=== PATIENT | male | born 1960 | race Caucasian/White ===

== ENCOUNTER 2025-02-11 06:36 | Observation (INO) | payer BC, SELFPAY ==
[2025-02-11] VITALS (23 sets, daily range): BP systolic 111–163; BP diastolic 59–93; PULSE 69–91; RESP 16–20; TEMP 37–37.2; O2SAT 90–97; BMI 24.0
--- NOTE | 2025-02-11 07:14 | CT_ITS ---
FINAL REPORT TECHNIQUE: Thin section axial images are obtained through the abdomen and pelvis after intravenous contrast. Reconstruction images were obtained from the axial data. Exam was performed using dose reduction techniques. CLINICAL HISTORY: gen abd pain, difficulty having BM, fever/n/v FINDINGS: LUNG BASES: Lung bases are clear. Heart size is normal. LIVER: Diffuse fatty infiltration. No focal lesion. GALLBLADDER/BILIARY SYSTEM: Gallbladder is present. There is gallbladder wall thickening. There are likely gallstones. There is mild surrounding abnormal attenuation raising concern for acute cholecystitis. SPLEEN: Unremarkable. PANCREAS: Unremarkable. ADRENALS: Unremarkable. KIDNEYS/URETERS/BLADDER: No hydronephrosis, renal mass, or renal stone. Unremarkable urinary bladder. GI TRACT: No small bowel obstruction or dilatation. Normal appendix. There is mild wall thickening of the descending colon. Colitis is not excluded. PELVIC ORGANS: Unremarkable for age. LYMPH NODES/RETROPERITONEUM/MESENTERY: No lymphadenopathy. Abdominal aortic aneurysm measuring 44 mm. ABDOMINAL WALL: There is a right inguinal hernia containing fat and a loop of small bowel. FREE FLUID: No ascites. BONES: No acute osseous abnormality. IMPRESSION: Distended gallbladder with gallbladder wall thickening and inflammatory changes. Acute cholecystitis is not excluded. Possible descending colitis. Abdominal aortic aneurysm. Reviewed, Interpreted and Dictated by Heidy Modi MD Transcribed by Sujey Jacome Authenticated and [facility]
--- NOTE | 2025-02-11 07:20 | ED_ITS ---
Discharge Plan Disposition Patient Disposition: Admitted Condition: Good Clinical Impressions Clinical Impression: Cholecystitis, Colitis Discharge ED Provider: Anny Galindo General Adult HPI General Chief complaint: Nausea/Vomiting/Diarrhea Stated complaint: possible bowel obrustion, vomiting, bloating,fever Time Seen by Provider: 02/11/25 07:02 Mode of Arrival: Ambulatory Source of Information: Patient Description of Symptoms (Recalled from ER Triage Doc. by RN): PT HERE W/ C/O NV/CONSTIPATION. LAST NORMAL BM X1 WEEK. REPORTS ENEMA WITH MINIMAL RESULTS. VOMITTING STARTED AROUND 0300 THIS AM. PT CONCERNED FOR IMPACTION History of Present Illness HPI narrative: This patient is a 64-year-old male who denies significant past medical history or prior surgical abdominal history presenting to the emergency department for evaluation of concern for abdominal pain, nausea, vomiting, and concerns for fecal impaction. He notes he is not been able to have a bowel movement in a week. He states he tried multiple laxatives and enemas at home but has not had any improvement. Abdominal pain is generalized. Fevers are subjective and low- grade. No history of bowel obstructions or abdominal surgeries, he has a history of colonoscopy and he stated that he does not have any significant problems that he knows of. Related Data Home Medications ?Medication ?Instructions ?Recorded ?Confirmed No Known Home Medications 02/11/25 02/11/25 Allergies Allergy/AdvReac Type Severity Reaction Status Date / Time No Known Allergies Allergy Verified 02/11/25 06:55 [facility] Disclaimer: The information contained in this section may have been updated after the patient was seen, as this information can be updated by other users. Medical History No significant past medical history Surgical History No significant past surgical history Family History (Updated 02/11/25 @ 13:30 by Maryuri Vaca RN) Other No significant family history Social History (Updated 02/11/25 @ 13:30 by Maryuri Vaca, [place]) Smoking Status: Never smoker alcohol intake: never substance use type: denies use current occupational status: other Travel in the last 8 weeks: None Have you lived/traveled outside US in past 30 days?: No Contact w/someone who lives/traveled outside US past 30 days?: No Exposure to someone with infectious disease in past 14 days?: No Do you have a fever (greater than 100.4 F or 38 C)?: Yes Have you tested positive for COVID-19: No Exposed to someone with COVID-19 in past 14 days?: No Do you have a sore throat?: No Do you have a cough?: No Do you have any weakness?: No Are you experiencing any nausea/vomitting?: Yes Do you have any diarrhea?: No Are you experiencing any unusual bleeding?: No Do you have any muscle aches/pain?: No Do you have any abdominal pain?: No Are you experiencing loss of taste or smell?: No ROS Obtained: Yes All systems reviewed & no additional complaints except as documented Physical Exam General General appearance: alert and in no apparent distress Head Head exam: atraumatic and normocephalic Eye Eye exam: Present normal appearance, PERRL and EOMI ENT ENT exam: Present normal exam, normal oropharynx, mucous membranes moist and normal external ear exam Neck Neck exam: Present normal inspection, full ROM and trachea midline; Absent tenderness Chest Chest inspection: Present normal inspection and symmetric chest wall rise; Absent tenderness Respiratory Respiratory exam: Present normal lung sounds bilaterally; Absent respiratory distress, wheezes, stridor or accessory muscle use Cardiovascular Cardiovascular exam: Present regular rate and normal rhythm Abdominal Exam Abdominal exam: Present soft, distention (mild) and tenderness (generalized); Absent guarding, rebound or rigidity Extremities Exam Extremities exam: Present normal inspection, full ROM and normal capillary refill; Absent tenderness or edema Back Exam Back exam: Present normal inspection and full ROM; Absent tenderness Neurological Exam Neurological exam: Present alert, oriented X3, CN II-XII intact and normal gait; Absent motor sensory deficit Psychiatric Psychiatric exam: Present normal affect and normal mood Skin Skin exam: Present warm and dry Medical Decision Making Medical Records Medical records reviewed: Yes I reviewed the patient's medical records. Screening: Per USPSTF and CDC recommendations, given the prevalence of disease in our region, it is our hospital?s policy to screen for HIV and viral Hepatitis for all patients aged 18 and over and those with ongoing risk factors. Jaden Inquiry Pt receiving controlled substance: No Vital Signs: 02/11/25 06:51 02/11/25 07:00 02/11/25 07:30 Temperature 99.0 F Temperature Source Oral Pulse Rate 82 79 Pulse Rate [Apical] 91 H Respiratory Rate 20 Blood Pressure 148/89 H 138/87 Blood Pressure [Right Arm] 146/93 H Blood Pressure Mean Blood Pressure Mean [Right Arm] 110 02 Sat by Pulse Oximetry 96 96 97 Oxygen Delivery Method Room Air Room Air Room Air 02/11/25 08:00 02/11/25 09:12 02/11/25 09:30 Temperature Temperature Source Pulse Rate 75 72 71 Pulse Rate [Apical] Respiratory Rate Blood Pressure 155/85 H 143/90 H 160/88 H Blood Pressure [Right Arm] Blood Pressure Mean 99 112 Blood Pressure Mean [Right Arm] 02 Sat by Pulse Oximetry 97 95 93 L Oxygen Delivery Method Room Air 02/11/25 10:30 Temperature 98.6 F Temperature Source Oral Pulse Rate 72 Pulse Rate [Apical] Respiratory Rate 16 Blood Pressure 163/85 H Blood Pressure [Right Arm] Blood Pressure Mean Blood Pressure Mean [Right Arm] 02 Sat by Pulse Oximetry Oxygen Delivery Method Room Air Lab Data Lab results reviewed: Yes I reviewed the patient's lab results. Lab Results 02/11/25 07:29: WBC 11.1 H, RBC 4.84, Hgb 15.0, Hct 43.2, MCV 89.3, MCH 31.0, MCHC 34.7, RDW 13.7, Plt Count 292, MPV 9.7, Neut % (Auto) 78.5, Lymph % (Auto) 11.4, [place] % (Auto) 9.1, Eos % (Auto) 0.3, Baso % (Auto) 0.4, Neut # (Auto) 8.7 H, Lymph # (Auto) 1.3, [place] # (Auto) 1.0, Eos # (Auto) 0.0, Baso # (Auto) 0.0, Sodium 136, Potassium 3.8, Chloride 98, Carbon Dioxide 26, Anion Gap 15.8 H, BUN 9, Creatinine 0.70, Estimated Creat Clear 78, Estimated GFR 113, Est GFR ( Amer) 137, Glucose 117 H, Calcium 10.0, Magnesium 1.8, Total Bilirubin 0.8, AST 24, ALT 24, Alkaline Phosphatase 66, Total Protein 7.3, Albumin 4.6, Globulin 2.7, Albumin/Globulin Ratio 1.7, Lipase 57, HCV Ab BHAVANI w/Rflx PCR Qn Negative, HIV Ag/Ab Combo Qual Negative 02/11/25 08:19: Urine Color Yellow, Urine Appearance Clear, Urine pH 7.5, Ur Specific [place] 1.010, Urine Protein Negative, Urine Glucose (UA) Negative, Urine Ketones Negative, Urine Blood Negative, Urine Nitrate Negative, Urine Bilirubin Negative, Urine Urobilinogen 0.2, Ur Leukocyte Esterase Negative, Urine RBC None, Urine WBC None, Ur Squamous Epith Cells None, Urine Bacteria None 02/11/25 07:29 02/11/25 07:29 Orders (Tests/Meds): ED MEDICATIONS Generic Name Dose Route Start Last Admin Trade Name Freq PRN Reason Stop Dose Admin Acetaminophen 650 mg 02/11/25 12:45 Acetaminophen 325mg Tab PO 03/13/25 12:44 Q4HP PRN Fever or Mild Pain (1-3) Hydrocodone Bitart/Acetaminophen 1 tab 02/11/25 12:45 Hydrocodone/Apap 5/325 Mg Tablet PO 03/13/25 12:44 Q4HP PRN Mild to Moderate Pain (1-6) Hydrocodone Bitart/Acetaminophen 2 tab 02/11/25 12:45 Hydrocodone/Apap 5/325 Mg Tablet PO 03/13/25 12:44 Q4HP PRN Moderate to Severe Pain (4-10) Enoxaparin Sodium 40 mg 02/12/25 09:00 Enoxaparin 40mg/0.4ml Syringe SUBCUT 03/14/25 08:59 DAILY JAQUELINE Discontinued Medications Generic Name Dose Route Start Last Admin Trade Name Freq PRN Reason Stop Dose Admin Acetaminophen 1,000 mg 02/11/25 08:58 02/11/25 09:06 Acetaminophen 1,000mg/100ml Vial IV 02/11/25 08:59 1,000 mg ONCE ONE Administration Hydromorphone HCl 0.5 mg 02/11/25 12:40 Hydromorphone 2mg/Ml Syringe IV 02/11/25 14:40 Q5MINP PRN Severe Pain (7-10) Lactated Ringer's 1,000 mls @ 999 mls/hr 02/11/25 07:28 02/11/25 07:40 Lactated Ringer's 1000 Ml Bag IV 02/11/25 08:28 999 mls/hr .Q1H1M ONE Administration Piperacillin Sod/Tazobactam 50 mls @ 100 mls/hr 02/11/25 09:36 02/11/25 11:34 Sod 3.375 gm/ Sodium Chloride IV 02/11/25 10:05 100 mls/hr ONCE ONE Administration Iopamidol 75 ml 02/11/25 08:26 02/11/25 08:27 Iopamidol-370 (76%);100ml Bottle IV 02/11/25 08:27 75 ml ONCE ONE Administration Ketorolac Tromethamine 15 mg 02/11/25 08:58 02/11/25 09:06 Ketorolac 30mg/Ml Vial IV 02/11/25 08:59 15 mg ONCE ONE Administration Meperidine HCl 25 mg 02/11/25 12:40 Meperidine 25mg/Ml 1ml Syringe IV 02/11/25 14:40 Q5MINP PRN Shivering Morphine Sulfate 2 mg 02/11/25 12:40 Morphine 2mg/Ml Syringe IV 02/11/25 14:40 Q5MINP PRN Moderate Pain (4-6) Ondansetron HCl 4 mg 02/11/25 08:58 02/11/25 09:06 Ondansetron 4mg/2ml Vial IV 02/11/25 08:59 4 mg ONCE ONE Administration Ondansetron HCl 4 mg 02/11/25 12:40 Ondansetron 4mg/2ml Vial IV 02/11/25 14:40 Q6HP PRN Nausea Promethazine HCl 6.25 mg 02/11/25 12:40 Promethazine Hcl 25mg/Ml 1ml Vial IV 02/11/25 14:40 [id number] PRN Nausea And Vomiting Sodium Chloride 10 ml 02/11/25 08:26 02/11/25 08:26 Sodium Chloride 0.9% 10ml Syr (Rad Only) IV 02/11/25 08:27 10 ml ONCE ONE Administration Sodium Chloride 25 ml 02/11/25 12:40 Sodium Chloride 0.9% 25ml Bag IV 02/11/25 14:40 NEEDED PRN for Use with IV Promethazine ORDERS Category Date Time Status CT abdomen pelvis w con Stat Cat Scan 02/11/25 07:14 Completed General Surgery Consult [Consult to General Surgery] [ Cons 02/11/25 09:24 Ordered CONS] Stat Complete Blood Count Auto Diff AMLAB Lab 02/12/25 06:00 Ordered Complete Blood Count Auto Diff AMLAB Lab 02/13/25 06:00 Ordered Complete Blood Count Auto Diff AMLAB Lab 02/14/25 06:00 Ordered Complete Blood Count Auto Diff AMLAB Lab 02/15/25 06:00 Ordered Complete Blood Count Auto Diff AMLAB Lab 02/16/25 06:00 Ordered Complete Blood Count Auto Diff Stat Lab 02/11/25 07:29 Completed Comprehensive Metabolic Panel AMLAB Lab 02/12/25 06:00 Ordered Comprehensive Metabolic Panel AMLAB Lab 02/13/25 06:00 Ordered Comprehensive Metabolic Panel AMLAB Lab 02/14/25 06:00 Ordered Comprehensive Metabolic Panel AMLAB Lab 02/15/25 06:00 Ordered Comprehensive Metabolic Panel AMLAB Lab 02/16/25 06:00 Ordered Comprehensive Metabolic Panel Stat Lab 02/11/25 07:29 Completed HIV Combo Stat Lab 02/11/25 07:29 Completed Hepatitis C Ab Qual. W/ RFX Stat Lab 02/11/25 07:29 Completed Lipase Stat Lab 02/11/25 07:29 Completed Magnesium AMLAB Lab 02/12/25 06:00 Ordered Magnesium AMLAB Lab 02/13/25 06:00 Ordered Magnesium AMLAB Lab 02/14/25 06:00 Ordered Magnesium AMLAB Lab 02/15/25 06:00 Ordered Magnesium AMLAB Lab 02/16/25 06:00 Ordered UA [Urinalysis and Microscopic] Stat Lab 02/11/25 08:19 Completed Medical Decision Narrative: In summary, this patient is a 64-year-old male presenting to the Emergency Department for evaluation of generalized abdominal pain, constipation, nausea, vomiting, and fever. Differential diagnoses considered include but are not limited to diverticulitis, colitis, fecal impaction, gastroenteritis. Ruling out the most morbid conditions drove assessment. On exam, the patient is lying in bed in no acute distress. He has generalized abdominal tenderness but no rebound or guarding. He states that he feels like he has to have a bowel movement but has been able to, but he also has had fevers, nausea, and vomiting. It is possible he could have constipation with some sort of gastroenteritis, but to rule out acute pathology such as diverticulitis or surgical intra-abdominal pathology, I did elect to obtain CT abdomen and pelvis with IV contrast as well as CBC, CMP, lipase. patient was given a bolus of IV fluids. I independently interpreted CT scan prior to the radiologist read and noted gallbladder wall thickening, biliary sludge and gallstones, and pericholecystic fluid concerning for cholecystitis. He does have moderate stool burden but I do not see any obvious obstructive process. Please see their read for final interpretation. Labs were obtained that demonstrated very mild leukocytosis. Otherwise, chemistry is reassuring with normal liver enzymes, normal bilirubin, normal lipase. On reassessment, patient had some improvement after administration of IV fluids, IV Toradol, acetaminophen, and Zofran, but he complains of continued pain. He does have right upper quadrant tenderness on exam which supports cholecystitis. Given this, I had an interactive discussion with Dr. Andrew with surgery who recommended admitting the patient for IV antibiotics. He recommended IV Zosyn. He plans to take the patient to the OR. Patient was taken to the OR and then admitted in stable condition. Patient and family updated to plan of care. Critical Care Critical Care Time Critical Care Time: No
[2025-02-11] MEDS: LACTATED RINGERS 1000ML 1,000 ML 999 ML IV (07:40)
[2025-02-11 07:56] LABS: Basophils % 0.4 % (0.1-2.0); Eosinophils % 0.3 % (0.1-12.0); Hematocrit 43.2 % (42.0-52.0); Lymphocytes # 1.3 K/mm3 (0.7-4.5); Lymphocytes % 11.4 % (10-50); Mean Corpuscular HGB Conc 34.7 g/dL (31.8-35.4); Mean Corpuscular Volume 89.3 fl (80-94); Mean Platelet Volume 9.7 fl (7.4-10.4); Monocytes % 9.1 % (1.7-9.3); Neutrophils # 8.7 K/mm3 (1.8-7.8); Neutrophils % 78.5 % (37.0-80.0); Platelet Count 292 K/mm3 (142-424); Red Blood Count 4.84 M/mm3 (4.60-6.20); Red Cell Distribution Width 13.7 % (11.5-17.5); White Blood Count 11.1 K/mm3 (4.8-10.8)
[2025-02-11 08:12] LABS: Alanine Aminotransferase 24 U/L (12-78); Albumin Level 4.6 g/dl (3.5-5.0); Albumin/Globulin Ratio 1.7 (1.1-1.8); Alkaline Phosphatase 66 U/L (38-126); Anion Gap 15.8 mEq/L (5-15); Aspartate Amino Transferase 24 U/L (17-59); Bilirubin,Total 0.8 mg/dl (0.2-1.3); Blood Urea Nitrogen 9 mg/dl (9-20); Carbon Dioxide 26 mmol/L (22.0-30.0); Chloride 98 mmol/L (98-107); Creatinine Clearance Estimated 78 mL/min (50-200); Estimated Glomerular Filt Rate 113 ml/min (>60); GFR (African American) 137 ML/MIN (>60); Globulin 2.7 g/dL (1.3-3.2); Glucose 117 mg/dl (74-100); Lipase 57 U/L (23-300); Potassium 3.8 mmoL/L (3.5-5.1); Sodium 136 mmol/L (136-145); Total Protein,Serum 7.3 g/dl (6.3-8.2)
[2025-02-11 08:24] LABS: Microscopic, Urine URINE MICROSCOPIC (MICROSCOPIC)
[2025-02-11 08:25] LABS: Appearance,Urine CLEAR (Clear); Bilirubin,Urine Negative (Negative); Blood, Urine Negative (Negative); Color,Urine YELLOW (Yellow); Glucose,Urine (UA) Negative (Negative); Ketones,Urine Negative (Negative); Leukocyte Esterase,Urine Negative (Negative); Nitrate,Urine Negative (Negative); PH,Urine 7.5 (5.0-8.5); Protein,Urine Negative (Negative); Urobilinogen,Urine 0.2 EU/dl (0.2)
[2025-02-11] MEDS: SODIUM CHLORIDE 0.9% 10ML SYR (RAD ONLY) 10 ML IV (08:26)
[2025-02-11] MEDS: IOPAMIDOL-370 (76%);100ML BOTTLE 75 ML IV (08:27)
[2025-02-11] MEDS: ONDANSETRON 4MG/2ML VIAL 4 MG IV (09:06)
[2025-02-11] MEDS: KETOROLAC 30MG/ML VIAL 15 MG IV (09:06)
[2025-02-11] MEDS: ACETAMINOPHEN 1,000MG/100ML VIAL 1000 MG IV (09:06)
[2025-02-11 09:35] LABS: HIV Combo NEGATIVE (Negative)
[2025-02-11 09:43] LABS: Hepatitis C Ab Qual. W/ RFX NEGATIVE (Negative)
--- NOTE | 2025-02-11 09:56 | PC.NURSE ---
Reviewing surgical packet and rpe-op checklist with pt & his . Removed pt jewelry and gave to his - including wedding band and smart watch. Last void at 0819. NPO @ 7 am- small sip of water, last food intake 1400 02/10.
[2025-02-11] MEDS: PIPERACILLIN/TAZO 3.375 GM in 0.9 % SODIUM CHLORIDE 50 ML IV ×2 (10:31→11:34)
--- NOTE | 2025-02-11 10:35 | PC.NURSE ---
Pt's eye glasses given to pt's . She also has pt's wallet with prasad in it. Pt & surgery nurse is aware. Beside report given to Alba Valencia RN
--- NOTE | 2025-02-11 11:07 | P.PNANES_ITS ---
[facility] Disclaimer: The information contained in this section may have been updated after the patient was seen, as this information can be updated by other users. Medical History No significant past medical history Surgical History No significant past surgical history Social History Smoking Status: Never smoker alcohol intake: never substance use type: denies use current occupational status: other Travel in the last 8 weeks: None [facility] Anesthesia Checklist Patient Identification Patient Identification: Arm Band Structural Data Admitted From: Home Planned Operative Procedure/s: Laparoscopic Cholecystectomy Consent for Planned Operative Procedure(s) Verified: Yes Verified Documents: Surgical Consent and History and Physical NPO Status Verified Time NPO: 00:00 Additional verifications Anesthesia Reactions: No Airway Assessment Mallampati Score:: Class II C-Spine Mobility Assessed: Yes TMJ Mobility Assessed: Yes Dentition: Edentulous Neurological Assessment Level of Consciousness: Awake, Alert and Appropriate Anesthesia Plan Anesthesia Risk discussed: Yes Anesthesia Plan: Verified ASA Class: II Anesthesia Type: General
--- NOTE | 2025-02-11 11:27 | P.HP_ITS ---
HPI HPI HPI: This is a 64-year-old gentleman who presented to the emergency department with increasing abdominal pain/bloating. He was concerned about possible developing obstruction . Currently he feels a little better . With regard to specific location he states that most of his pain was in the upper abdomen into the right . However, bloating/discomfort is generalized. CT scan in emergency department revealed a distended gallbladder with wall thickening and likely stones. Forwarded from emergency department evaluation: This patient is a 64-year-old male who denies significant past medical history or prior surgical abdominal history presenting to the emergency department for evaluation of concern for abdominal pain, nausea, vomiting, and concerns for fecal impaction. He notes he is not been able to have a bowel movement in a week. He states he tried multiple laxatives and enemas at home but has not had any improvement. Abdominal pain is generalized. Fevers are subjective and low- grade. No history of bowel obstructions or abdominal surgeries, he has a history of colonoscopy and he stated that he does not have any significant problems that he knows of. [facility] Disclaimer: The information contained in this section may have been updated after the patient was seen, as this information can be updated by other users. Medical History (Updated 02/11/25 @ 11:31 by Luis Andrew MD) No significant past medical history Surgical History No significant past surgical history Social History (Updated 02/11/25 @ 11:08 by Micheal Rod CRNA) Smoking Status: Never smoker alcohol intake: never substance use type: denies use current occupational status: other Travel in the last 8 weeks: None Have you lived/traveled outside US in past 30 days?: No Contact w/someone who lives/traveled outside US past 30 days?: No Exposure to someone with infectious disease in past 14 days?: No Do you have a fever (greater than 100.4 F or 38 C)?: Yes Have you tested positive for COVID-19: No Exposed to someone with COVID-19 in past 14 days?: No Do you have a sore throat?: No Do you have a cough?: No Do you have any weakness?: No Do you have any diarrhea?: No Are you experiencing any unusual bleeding?: No Do you have any muscle aches/pain?: No Do you have any abdominal pain?: No Are you experiencing loss of taste or smell?: No Meds Home Medications and Allergies Home Medications ?Medication ?Instructions ?Recorded ?Confirmed ?Type No Known Home Medications 02/11/25 02/11/25 History New Prescriptions to Start Prescriptions: Allergies Allergy/AdvReac Type Severity Reaction Status Date / Time No Known Allergies Allergy Verified 02/11/25 06:55 Exam Data for Last 24 hours Vital signs and Labs for Last 24 Hours: Temp Pulse Resp BP Pulse Ox O2 Del Method 98.6 F 72 16 163/85 H 93 L Room Air 02/11/25 10:30 02/11/25 10:30 02/11/25 10:30 02/11/25 10:30 02/11/25 09:30 02/11/25 10:30 Laboratory Results - last 24 hr 02/11/25 07:29: WBC 11.1 H, RBC 4.84, Hgb 15.0, Hct 43.2, MCV 89.3, MCH 31.0, MCHC 34.7, RDW 13.7, Plt Count 292, MPV 9.7, Neut % (Auto) 78.5, Lymph % (Auto) 11.4, [place] % (Auto) 9.1, Eos % (Auto) 0.3, Baso % (Auto) 0.4, Neut # (Auto) 8.7 H, Lymph # (Auto) 1.3, [place] # (Auto) 1.0, Eos # (Auto) 0.0, Baso # (Auto) 0.0, Sodium 136, Potassium 3.8, Chloride 98, Carbon Dioxide 26, Anion Gap 15.8 H, BUN 9, Creatinine 0.70, Estimated Creat Clear 78, Estimated GFR 113, Est GFR ( Amer) 137, Glucose 117 H, Calcium 10.0, Total Bilirubin 0.8, AST 24, ALT 24, Alkaline Phosphatase 66, Total Protein 7.3, Albumin 4.6, Globulin 2.7, Albumin/Globulin Ratio 1.7, Lipase 57, HCV Ab BHAVANI w/Rflx PCR Qn Negative, HIV Ag/Ab Combo Qual Negative 02/11/25 08:19: Urine Color Yellow, Urine Appearance Clear, Urine pH 7.5, Ur Specific [place] 1.010, Urine Protein Negative, Urine Glucose (UA) Negative, Urine Ketones Negative, Urine Blood Negative, Urine Nitrate Negative, Urine Bilirubin Negative, Urine Urobilinogen 0.2, Ur Leukocyte Esterase Negative, Urine RBC None, Urine WBC None, Ur Squamous Epith Cells None, Urine Bacteria None I & O for Last 24 hours: Intake & Output 02/08/25 02/09/25 02/10/25 02/11/25 11:59 11:59 11:59 11:59 Intake Total 1100 / 1100 Balance 1100 / 1100 Weight 168 lb *Routine HEENT Exam Head: Present normocephalic Eye: Present EOMI ENT: Present mucous membranes moist *Routine Respiratory Exam Respiratory: Absent respiratory distress *Routine Cardiovascular Exam Cardiovascular: Absent tachycardia *Routine Abdominal Exam Abdominal: Present tenderness *Routine Rectal Exam Rectal:: deferred *Routine Genitalia Exam Genitalia:: deferred Results Results Lab Results Last 24 Hours:: Laboratory Results - last 24 hr 02/11/25 07:29: WBC 11.1 H, RBC 4.84, Hgb 15.0, Hct 43.2, MCV 89.3, MCH 31.0, MCHC 34.7, RDW 13.7, Plt Count 292, MPV 9.7, Neut % (Auto) 78.5, Lymph % (Auto) 11.4, [place] % (Auto) 9.1, Eos % (Auto) 0.3, Baso % (Auto) 0.4, Neut # (Auto) 8.7 H, Lymph # (Auto) 1.3, [place] # (Auto) 1.0, Eos # (Auto) 0.0, Baso # (Auto) 0.0, Sodium 136, Potassium 3.8, Chloride 98, Carbon Dioxide 26, Anion Gap 15.8 H, BUN 9, Creatinine 0.70, Estimated Creat Clear 78, Estimated GFR 113, Est GFR ( Amer) 137, Glucose 117 H, Calcium 10.0, Total Bilirubin 0.8, AST 24, ALT 24, Alkaline Phosphatase 66, Total Protein 7.3, Albumin 4.6, Globulin 2.7, Albumin/Globulin Ratio 1.7, Lipase 57, HCV Ab BHAVANI w/Rflx PCR Qn Negative, HIV Ag/Ab Combo Qual Negative 02/11/25 08:19: Urine Color Yellow, Urine Appearance Clear, Urine pH 7.5, Ur Specific [place] 1.010, Urine Protein Negative, Urine Glucose (UA) Negative, Urine Ketones Negative, Urine Blood Negative, Urine Nitrate Negative, Urine Bilirubin Negative, Urine Urobilinogen 0.2, Ur Leukocyte Esterase Negative, Urine RBC None, Urine WBC None, Ur Squamous Epith Cells None, Urine Bacteria None CT scan - abdomen: report reviewed and image reviewed CT scan - pelvis: report reviewed and image reviewed Assessment and Plan *Assessment and plan (1) Acute cholecystitis due to biliary calculus: Status: Acute Category: Medical Code(s): K80.00 - Calculus of gallbladder with acute cholecystitis without obstruction Plan: Laparoscopic cholecystectomy today I have discussed the risks and benefits including, but not limited to: Bleeding Infection Damage to surrounding tissue Inherent risks of sedation The patient agrees to proceed.
--- NOTE | 2025-02-11 11:38 | PC.NURSE ---
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
[2025-02-11] MEDS: LIDOCAINE 1% 20ML MDV 20 ML (11:44)
[2025-02-11] MEDS: SODIUM CHLORIDE IRRIG SOLUTION 3,000 ML 3000 ML IR (11:45)
--- NOTE | 2025-02-11 12:36 | EXP.OP.NOTE ---
Date of procedure: 02/11/25 Pre-op Diagnosis:: Acute calculus cholecystitis Post-op Diagnosis:: Acute calculus cholecystitis Gallbladder hydrops Procedure performed:: Laparoscopic cholecystectomy Surgeon:: Luis Andrew MD PROFESSOR OF HISTORICAL THEOLOGY:: Micheal Rod Anesthesia: GETA Estimated blood loss (mL): 15 Operative findings:: Severe gallbladder distention Severe pericholecystic fat stranding Serosal weeping Hydropic gallbladder with developing patchy necrosis Small umbilical hernia with chronically-incarcerated preperitoneal fat Operative note:: After informed consent was obtained, the patient was taken to the operating room and placed in the supine position. General anesthesia was induced and the abdomen was prepped and draped in a sterile fashion. A small umbilical defect with likely chronically-incarcerated preperitoneal fat was noted. After infiltration with local anesthetic an supraumbilical incision was made. A Veress needle was placed in position. The abdomen was insufflated. A 5 mm optical trocar was placed in position. Under direct visualization, a 12 mm trocar was placed in the subxiphoid position and 2 additional 5 mm trocars were placed in the right upper quadrant. Visualization confirmed that the umbilical defect was in fact incarcerated preperitoneal fat as opposed to omentum. The gallbladder was severely distended. Severe fat stranding surrounding tissue including colon, small bowel, and stomach noted. Serosal weeping and early/developing patchy necrosis noted. Harmonic murray were utilized to create a small otomy along the dome of the gallbladder. Hydropic fluid was evacuated via suction. The gallbladder was then elevated up and over the liver margin as surrounding adhesed tissue/structures were taken down bluntly.. The tissue around the cystic duct was carefully dissected. 3 clips were placed proximally and the duct was transected with harmonic murray. Harmonic murray were then utilized to dissect the gallbladder away from the liver margin with careful attention to the control of the cystic artery. The gallbladder was placed in a retrieval bag and removed through the subxiphoid trocar site. The right upper quadrant was thoroughly irrigated. No active bleeding or bile leak was noted. Fascia at the subxiphoid trocar site was reapproximated utilizing the NeoClose device. The remaining trocars were removed. All wounds were irrigated and skin was closed with 4-0 Monocryl in an interrupted mattress fashion to facilitate hemostasis. The patient's anesthetic agents were reversed and extubation was completed prior to transfer to recovery in stable condition. Condition: stable Disposition: PACU Specimens:: Gallbladder Complications:: No immediate
--- NOTE | 2025-02-11 12:37 | P.PNANES_ITS ---
[facility] Anesthesia Record Part I Anesthesia Record I Intake, IV Amount: 1,200 Hydration: Adequate Estimated blood loss (mL): 5 Urine output (mL): 0 Blood Products used (#): none Blood Pressure: 148/79 SaO2: 95 Pulse Rate: 69 Airway Patency: Patent Respiratory Rate: 16 Temperature: 98.6 F Patient is:: Drowsy and Stable Stable to PACU at:: 12:35
[2025-02-11 13:43] LABS: Magnesium 1.8 mg/dl (1.6-2.3)
--- NOTE | 2025-02-11 17:33 | PC.NURSE ---
Pt is currently resting in be with no complaints stated. 4 lap incision sites with DSGs in place. C/D/I. Pt has ambulated to BR without any difficulty with stand by assist. VSS. Call light within reach. Significant other in room. Student nurse, Ga Amos has provided care to this pt under this nurse's supervision.
[2025-02-11] MEDS: PIPERCILLIN/TAZO 3.375 GM in 0.9 % SODIUM CHLORIDE 50 ML IV (20:21)
[2025-02-12] VITALS: BP 121/67; PULSE 76; RESP 18; TEMP 37.1; O2SAT 94
[2025-02-12] MEDS: ACETAMINOPHEN 325MG TAB 650 MG PO (00:31)
[2025-02-12] MEDS: PIPERCILLIN/TAZO 3.375 GM in 0.9 % SODIUM CHLORIDE 50 ML IV (03:54)
[2025-02-12 04:00] VITALS: BP 108/59; PULSE 66; RESP 18; TEMP 36.6; O2SAT 94; BMI 23.9
--- NOTE | 2025-02-12 04:32 | PC.NURSE ---
Pt post op lap ayana. 4 lap sites clean, dry, and intact. Pt alert and oriented, independent. 20g LAC saline locked. Respirations even and unlabored. Bed low, locked, and call light within reach. in room with pt.
[2025-02-12 06:15] LABS: Basophils % 0.1 % (0.1-2.0); Hematocrit 39.1 % (42.0-52.0); Lymphocytes # 1.1 K/mm3 (0.7-4.5); Lymphocytes % 10.2 % (10-50); Mean Corpuscular HGB Conc 34.3 g/dL (31.8-35.4); Mean Corpuscular Hemoglobin 30.9 pg (27.0-31.2); Mean Corpuscular Volume 90.3 fl (80-94); Mean Platelet Volume 9.8 fl (7.4-10.4); Monocytes # 0.8 K/mm3 (0.1-1.0); Neutrophils # 8.8 K/mm3 (1.8-7.8); Neutrophils % 82.2 % (37.0-80.0); Platelet Count 247 K/mm3 (142-424); Red Blood Count 4.33 M/mm3 (4.60-6.20); Red Cell Distribution Width 13.6 % (11.5-17.5); White Blood Count 10.7 K/mm3 (4.8-10.8)
[2025-02-12 06:24] LABS: Alanine Aminotransferase 68 U/L (12-78); Albumin/Globulin Ratio 1.5 (1.1-1.8); Alkaline Phosphatase 57 U/L (38-126); Anion Gap 13.7 mEq/L (5-15); Aspartate Amino Transferase 68 U/L (17-59); Bilirubin,Total 0.5 mg/dl (0.2-1.3); Blood Urea Nitrogen 12 mg/dl (9-20); Carbon Dioxide 23 mmol/L (22.0-30.0); Chloride 104 mmol/L (98-107); Creatinine Clearance Estimated 78 mL/min (50-200); Estimated Glomerular Filt Rate 113 ml/min (>60); GFR (African American) 137 ML/MIN (>60); Globulin 2.7 g/dL (1.3-3.2); Glucose 146 mg/dl (74-100); Magnesium 2.2 mg/dl (1.6-2.3); Potassium 3.7 mmoL/L (3.5-5.1); Sodium 137 mmol/L (136-145); Total Protein,Serum 6.7 g/dl (6.3-8.2)
[2025-02-12 07:10] LABS: Hemoglobin 13.4 g/dL (14.1-18.0)
--- NOTE | 2025-02-12 07:11 | P.PNANES_ITS ---
[facility] Anesthesia Record Part II Anesthesia Record Part II Discharge Time: 13:05 Destination: Medical Surgical Department PACU nurse assessment reviewed?: Yes Patient Condition:: Good Anesthesia Complications:: None Swallowing reflex intact?: Yes Airway Patency: Patent Cyanosis?: No Blood Pressure: 125/76 SaO2: 95 Respiratory Rate: 16 Pulse Rate: 70 Temperature: 98.6 F Mental Status: Alert & Oriented Pain level:: 0 Nausea and/or vomitting:: None Intake, IV Amount: 0 Hydration: Adequate
[2025-02-12 07:13] VITALS: BP 125/76; PULSE 70; RESP 16; TEMP 37; O2SAT 95
--- NOTE | 2025-02-12 07:18 | P.PN_ITS ---
Subjective Patient reports: no new complaints Exam Data for Last 24 hours Vital signs and Labs for Last 24 Hours: Temp Pulse Resp BP Pulse Ox O2 Del Method 97.8 F 66 16 108/59 L 94 L Room Air 02/12/25 04:00 02/12/25 04:00 02/12/25 07:13 02/12/25 04:00 02/12/25 04:00 02/12/25 06:44 Laboratory Results - last 24 hr 02/11/25 07:29: WBC 11.1 H, RBC 4.84, Hgb 15.0, Hct 43.2, MCV 89.3, MCH 31.0, MCHC 34.7, RDW 13.7, Plt Count 292, MPV 9.7, Neut % (Auto) 78.5, Lymph % (Auto) 11.4, [place] % (Auto) 9.1, Eos % (Auto) 0.3, Baso % (Auto) 0.4, Neut # (Auto) 8.7 H, Lymph # (Auto) 1.3, [place] # (Auto) 1.0, Eos # (Auto) 0.0, Baso # (Auto) 0.0, Sodium 136, Potassium 3.8, Chloride 98, Carbon Dioxide 26, Anion Gap 15.8 H, BUN 9, Creatinine 0.70, Estimated Creat Clear 78, Estimated GFR 113, Est GFR ( Amer) 137, Glucose 117 H, Calcium 10.0, Magnesium 1.8, Total Bilirubin 0.8, AST 24, ALT 24, Alkaline Phosphatase 66, Total Protein 7.3, Albumin 4.6, Globulin 2.7, Albumin/Globulin Ratio 1.7, Lipase 57, HCV Ab BHAVANI w/Rflx PCR Qn Negative, HIV Ag/Ab Combo Qual Negative 02/11/25 08:19: Urine Color Yellow, Urine Appearance Clear, Urine pH 7.5, Ur Specific [place] 1.010, Urine Protein Negative, Urine Glucose (UA) Negative, Urine Ketones Negative, Urine Blood Negative, Urine Nitrate Negative, Urine Bilirubin Negative, Urine Urobilinogen 0.2, Ur Leukocyte Esterase Negative, Urine RBC None, Urine WBC None, Ur Squamous Epith Cells None, Urine Bacteria None 02/12/25 05:39: WBC 10.7, RBC 4.33 L, Hgb 13.4 L D, Hct 39.1 L, MCV 90.3, MCH 30.9, MCHC 34.3, RDW 13.6, Plt Count 247, MPV 9.8, Neut % (Auto) 82.2 H, Lymph % (Auto) 10.2, [place] % (Auto) 7.0, Eos % (Auto) 0.0 L, Baso % (Auto) 0.1, Neut # (Auto) 8.8 H, Lymph # (Auto) 1.1, [place] # (Auto) 0.8, Eos # (Auto) 0.0, Baso # (Auto) 0.0, Sodium 137, Potassium 3.7, Chloride 104, Carbon Dioxide 23, Anion Gap 13.7, BUN 12 D, Creatinine 0.70, Estimated Creat Clear 78, Estimated GFR 113, Est GFR ( Amer) 137, Glucose 146 H D, Calcium 9.0, Magnesium 2.2 D, Total Bilirubin 0.5, AST 68 H D, ALT 68 D, Alkaline Phosphatase 57, Total Protein 6.7, Albumin 4.0 D, Globulin 2.7, Albumin/Globulin Ratio 1.5 I & O for Last 24 hours: Intake & Output 02/09/25 02/10/25 02/11/25 02/12/25 11:59 11:59 11:59 11:59 Intake Total 1100 / 1100 1560 / 1560 Balance 1100 / 1100 1560 / 1560 Weight 168 lb 167 lb Constitutional Constitutional: no acute distress *Routine Respiratory Exam Respiratory: Absent respiratory distress *Routine Cardiovascular Exam Cardiovascular: Absent tachycardia *Routine Abdominal Exam Comments: Dressings intact. No erythema. Progress Note: A&P Assessment and plan (1) Acute cholecystitis due to biliary calculus: Status: Acute Assessment and plan: She overall, doing well status post laparoscopic cholecystectomy Okay from surgical standpoint for discharge home with close outpatient follow-up Short-course of post-operative antibiotics reasonable (2) AAA (abdominal aortic aneurysm): Status: Acute Assessment and plan: The patient is aware of findings per CT. He plans to follow-up with a vascular surgeon in the outpatient setting.
[2025-02-12 08:00] VITALS: BP 109/50; PULSE 67; RESP 18; TEMP 36.4; O2SAT 98
--- NOTE | 2025-02-12 08:50 | P.DS_ITS ---
General Admission date:: 02/11/25 HPI HPI HPI: This is a 64-year-old gentleman who presented to the emergency department with increasing abdominal pain/bloating. He was concerned about possible developing obstruction . Currently he feels a little better . With regard to specific location he states that most of his pain was in the upper abdomen into the right . However, bloating/discomfort is generalized. CT scan in emergency department revealed a distended gallbladder with wall thickening and likely stones. Forwarded from emergency department evaluation: This patient is a 64-year-old male who denies significant past medical history or prior surgical abdominal history presenting to the emergency department for evaluation of concern for abdominal pain, nausea, vomiting, and concerns for fecal impaction. He notes he is not been able to have a bowel movement in a week. He states he tried multiple laxatives and enemas at home but has not had any improvement. Abdominal pain is generalized. Fevers are subjective and low- grade. No history of bowel obstructions or abdominal surgeries, he has a history of colonoscopy and he stated that he does not have any significant problems that he knows of. Hospital Course Hospital Course Hospital Course: Beltran Wood is a 64-year-old male who presented with abdominal pain and was admitted for acute cholecystitis s/p laparoscopic cholecystectomy by general surgery. #Acute cholecystitis ? General Surgery consulted, s/p laparoscopic cholecystectomy on 02/11/2025. Patient tolerated procedure well. ? Surgery recommended monitoring overnight with IV Zosyn given amount of inflammation around the gallbladder. ? WBC normal, no signs of sepsis. ? Discharged with 5 days of Augmentin, Percocet for pain as needed. Will follow-up with general surgery within 2 weeks. #AAA, stable ? CT abdomen/pelvis revealed AAA measuring 4.4 cm. Patient denies any abdominal pain at this time. ? Will follow-up with PCP for further monitoring. Encourage smoking cessation. #COPD ? Stable. Continue home Trelegy, albuterol as needed. #Hyperlipidemia ? LDL 146. Continue home rosuvastatin 40 mg. Exam Data for Last 24 hours Vital signs and Labs for Last 24 Hours: Temp Pulse Resp BP Pulse Ox O2 Del Method 97.8 F 66 16 108/59 L 94 L Room Air 02/12/25 04:00 02/12/25 04:00 02/12/25 07:13 02/12/25 04:00 02/12/25 04:00 02/12/25 06:44 Laboratory Results - last 24 hr 02/11/25 07:29: Magnesium 1.8, HCV Ab BHAVANI w/Rflx PCR Qn Negative, HIV Ag/Ab Combo Qual Negative 02/12/25 05:39: WBC 10.7, RBC 4.33 L, Hgb 13.4 L D, Hct 39.1 L, MCV 90.3, MCH 30.9, MCHC 34.3, RDW 13.6, Plt Count 247, MPV 9.8, Neut % (Auto) 82.2 H, Lymph % (Auto) 10.2, [place] % (Auto) 7.0, Eos % (Auto) 0.0 L, Baso % (Auto) 0.1, Neut # (Auto) 8.8 H, Lymph # (Auto) 1.1, [place] # (Auto) 0.8, Eos # (Auto) 0.0, Baso # (Auto) 0.0, Sodium 137, Potassium 3.7, Chloride 104, Carbon Dioxide 23, Anion Gap 13.7, BUN 12 D, Creatinine 0.70, Estimated Creat Clear 78, Estimated GFR 113, Est GFR ( Amer) 137, Glucose 146 H D, Calcium 9.0, Magnesium 2.2 D, Total Bilirubin 0.5, AST 68 H D, ALT 68 D, Alkaline Phosphatase 57, Total Protein 6.7, Albumin 4.0 D, Globulin 2.7, Albumin/Globulin Ratio 1.5 I & O for Last 24 hours: Intake & Output 02/09/25 02/10/25 02/11/25 02/12/25 23:59 23:59 23:59 23:59 Intake Total 2660 / 2660 0 / 0 Balance 2660 / 2660 0 / 0 Weight 76.204 kg 75.75 kg Constitutional Constitutional: no acute distress *Routine Respiratory Exam Respiratory: Absent respiratory distress *Routine Cardiovascular Exam Cardiovascular: Absent tachycardia *Routine Abdominal Exam Comments: Dressings intact. No erythema. Results Data Completed and Pending Labs on day of discharge: Labs from last 24 hours 02/12/25 02/11/25 05:39 07:29 WBC 10.7 RBC 4.33 L Hgb 13.4 L D Hct 39.1 L MCV 90.3 MCH 30.9 MCHC 34.3 RDW 13.6 Plt Count 247 MPV 9.8 Neut % (Auto) 82.2 H Lymph % (Auto) 10.2 [place] % (Auto) 7.0 Eos % (Auto) 0.0 L Baso % (Auto) 0.1 Neut # (Auto) 8.8 H Lymph # (Auto) 1.1 [place] # (Auto) 0.8 Eos # (Auto) 0.0 Baso # (Auto) 0.0 Sodium 137 Potassium 3.7 Chloride 104 Carbon Dioxide 23 Anion Gap 13.7 BUN 12 D Creatinine 0.70 Estimated Creat Clear 78 Estimated GFR 113 Est GFR ( Amer) 137 Glucose 146 H D Calcium 9.0 Magnesium 2.2 D 1.8 Total Bilirubin 0.5 AST 68 H D ALT 68 D Alkaline Phosphatase 57 Total Protein 6.7 Albumin 4.0 D Globulin 2.7 Albumin/Globulin Ratio 1.5 HCV Ab BHAVANI w/Rflx PCR Qn Negative HIV Ag/Ab Combo Qual Negative DS: Diagnosis Discharge Diagnosis (1) AAA (abdominal aortic aneurysm): Status: Acute Code(s): I71.40 - Abdominal aortic aneurysm, without rupture, unspecified Problem details: 44 mm Meds Home Medications and Allergies Home Medications ?Medication ?Instructions ?Recorded ?Confirmed ?Type amoxicillin 500 mg-potassium 1 tab PO TID 5 days #15 tabs 02/12/25 02/19/25 Rx clavulanate 125 mg tablet (Augmentin) hydrocodone 5 mg-acetaminophen 325 1 tab PO Q6H PRN post-op pain #17 02/12/25 02/19/25 Rx mg tablet tabs albuterol sulfate 90 mcg/actuation 2 puff inhalation Q4-6H PRN 02/18/25 02/19/25 Rx aerosol inhaler bronchospasm #8.5 grams cholecalciferol (vitamin D3) 50 50 mcg PO DAILY #90 caps 02/18/25 02/19/25 Rx mcg (2,000 unit) capsule fluticasone fur. 100 mcg-umeclid 1 inh inhalation DAILY #60 ea 02/18/25 02/19/25 Rx 62.5 mcg-vilant 25 mcg inhalat.powder (Trelegy Ellipta) mecobalamin (vitamin B12) 1,000 1,000 mcg PO DAILY #90 tabs 02/18/25 02/19/25 Rx mcg chewable tablet rosuvastatin 40 mg tablet 40 mg PO DAILY #90 tabs 02/18/25 02/19/25 Rx New Prescriptions to Start Prescriptions: amoxicillin-pot clavulanate [Augmentin] Ángel Bertrand hydrocodone-acetaminophen Luis Andrew Allergies Allergy/AdvReac Type Severity Reaction Status Date / Time No Known Allergies Allergy Verified 02/19/25 10:38 Discharge Plan Disposition Patient Disposition: Home, Self-Care Condition: Fair Follow up Plan Follow up with: Rachel Amos APRN [Nurse Practitioner] - 02/18/25 10:00 am Luis Andrew MD [Staff Physician] - 02/19/25 10:15 am Prescriptions/Medication Reconciliation: New hydrocodone-acetaminophen 5-325 mg tablet 1 tab PO Q6H PRN (Reason: post-op pain) Qty: 17 0RF amoxicillin-pot clavulanate [Augmentin] 500-125 mg tablet 1 tab PO TID 5 Days Qty: 15 0RF No Action albuterol sulfate 90 mcg/actuation HFA aerosol inhaler 2 puff inhalation Q4-6H PRN (Reason: bronchospasm) Qty: 8.5 5RF Trelegy Ellipta 100-62.5-25 mcg blister with device 1 inh inhalation DAILY Qty: 60 5RF rosuvastatin 40 mg tablet 40 mg PO DAILY Qty: 90 3RF mecobalamin (vitamin B12) 1,000 mcg tablet,chewable 1,000 mcg PO DAILY Qty: 90 3RF cholecalciferol (vitamin D3) 50 mcg (2,000 unit) capsule 50 mcg PO DAILY Qty: 90 3RF Problem Reconciliation Problems Reviewed?: Yes Patient Discharge Instructions ACTIVITY: Ambulate as tolerated and No heavy lifting DIET: advance to your usual diet Patient Instructions: DI for Surgical Site Infection, DI for Cholecystitis, DI for Laparoscopic Cholecystectomy Print Language: Algerian Providers Primary Care Provider: Provider,Referral Admit Provider: Luis Andrew Attending Provider: Ángel Bertrand
--- NOTE | 2025-02-12 09:02 | PC.ADMIT ---
[email or web address] [facility] Admission Note: The patient,Beltran Wood,64 y/o, was given written information regarding hospital policies, unit procedures and contact persons. Patient's smoking status: Never smoker. Vital Signs - 8 hr 02/12/25 03:00 02/12/25 04:00 02/12/25 05:00 Temperature 97.8 F Pulse Rate [Apical] 66 Respiratory Rate 18 Blood Pressure [Left Arm] 108/59 L 02 Sat by Pulse Oximetry 94 L Oxygen Delivery Method Room Air Room Air Room Air 02/12/25 06:44 02/12/25 07:13 02/12/25 08:00 Temperature Pulse Rate [Apical] Respiratory Rate 16 Blood Pressure [Left Arm] 02 Sat by Pulse Oximetry Oxygen Delivery Method Room Air Room Air 02/12/25 09:00 Temperature Pulse Rate [Apical] Respiratory Rate Blood Pressure [Left Arm] 02 Sat by Pulse Oximetry Oxygen Delivery Method Room Air
--- NOTE | 2025-02-15 12:34 | SW/DCPLANNER ---
Spoke with patient on the phone. Patient stated that he is doing well. Patient stated that he was able to get his medicine picked up. Patient stated that he is aware of his upcoming appointments. Patient stated that he was wondering when he could go back to work. I told patient that he needs to follow up with his primary care provider and the surgeon. Patient stated that he has no concerns or questions at this time. Zuhair Peterson
== END 2025-02-12 09:41 | disposition home or self-care (01) ==
LOC: ER 09:39 → OR 10:42 → 2ND 13:03
PROVIDERS: Admitting Provider Surgery; Emergency Provider Emergency Medicine; Visit Provider Student in an Organized Health Care Education/Training Program
PROC: 0FT44ZZ Resection of Gallbladder, Percutaneous Endoscopic Approach (ICD-10-PCS; CPT 47562; principal; 2025-02-11 12:15)
DX: K80.00 Calculus of gallbladder with acute cholecystitis without obstruction (principal); I71.40 Abdominal aortic aneurysm, without rupture, unspecified; R11.2 Nausea with vomiting, unspecified; J44.9 Chronic obstructive pulmonary disease, unspecified; E78.5 Hyperlipidemia, unspecified; F17.210 Nicotine dependence, cigarettes, uncomplicated; Z79.51 Long term (current) use of inhaled steroids; Z79.899 Other long term (current) drug therapy; Z71.6 Tobacco abuse counseling
CPT/HCPCS: 47562; 74177; 80053; 81001; 83690; 83735; 85025; 86803; 87389; 99285; J3490; G0378; J0131; J1100; J1885; J2250; J2405; J2543; J3010; J7120; Q9967

== ENCOUNTER 2025-02-18 10:55 | Outpatient (CLI) | payer BC, SELFPAY ==
[2025-02-18 12:51] LABS: Microscopic, Urine URINE MICROSCOPIC (MICROSCOPIC)
[2025-02-18 13:36] LABS: Appearance,Urine CLEAR (Clear); Bilirubin,Urine Negative (Negative); Blood, Urine Negative (Negative); Color,Urine YELLOW (Yellow); Glucose,Urine (UA) Negative (Negative); Ketones,Urine Negative (Negative); Leukocyte Esterase,Urine Negative (Negative); Nitrate,Urine Negative (Negative); Protein,Urine Negative (Negative); Urobilinogen,Urine 0.2 EU/dl (0.2)
[2025-02-18 13:39] LABS: Creatinine,Urine Random 296 mg/dL (Not Estab.)
[2025-02-18 13:40] LABS: Microalbumin/Creatinine Ratio 4.8
[2025-02-18 13:48] LABS: Chol/HDL Ratio 5.8 (1-3.5); Cholesterol 203 mg/dl (140-200); HDL Cholesterol 35 mg/dl (40-60); Triglycerides 191 mg/dl (30-150); VLDL Cholesterol 38 mg/dL (0-40)
[2025-02-18 14:00] LABS: Direct LDL Cholesterol 146.89 mg/dL (100-129)
[2025-02-18 14:08] LABS: Free T4 (Free Thyroxine) 0.89 ng/dl (0.78-2.19)
[2025-02-18 14:13] LABS: Iron 70 ug/dL (49-181)
[2025-02-18 14:20] LABS: Prostate Specific Ag Screen 0.8 ng/ml (0.0-4.0); Thyroid Stimulating Hormone 2.05 uIU/mL (0.465-4.68)
[2025-02-18 14:23] LABS: Squamous Epithelial Cell,Urine Occasional #/hpf (0-5); Total Iron Binding Capacity 345 ug/dL (261-462)
[2025-02-18 14:39] LABS: Vitamin B12 297 pg/mL (239-931)
[2025-02-18 14:55] LABS: Ferritin 201 ng/ml (17.9-464)
== END 2025-02-18 23:59 | disposition home or self-care (01) ==
LOC: LAB.DROPOF 02-19 10:18
PROVIDERS: PCP Nurse Practitioner Family; Visit Provider Nurse Practitioner Family
DX: R53.83 Other fatigue (principal); Z13.1 Encounter for screening for diabetes mellitus; Z12.2 Encounter for screening for malignant neoplasm of respiratory organs; F17.200 Nicotine dependence, unspecified, uncomplicated; Z13.220 Encounter for screening for lipoid disorders; I10 Essential (primary) hypertension; Z12.5 Encounter for screening for malignant neoplasm of prostate; G47.33 Obstructive sleep apnea (adult) (pediatric)
CPT/HCPCS: 80061; 81001; 82043; 82306; 82570; 82607; 82728; 83036; 83540; 83550; 84439; 84443; 87086; G0103

== ENCOUNTER 2025-02-26 07:39 | Outpatient (CLI) | payer BC, SELFPAY ==
[2025-02-26 08:10] VITALS: PULSE 73; PULSE 75
[2025-02-26] MEDS: ALBUTEROL 0.083% 2.5 MG/3 ML NEB IH (08:10)
== END 2025-02-26 23:59 | disposition home or self-care (01) ==
LOC: RT 07:40
PROVIDERS: PCP Nurse Practitioner Family; Visit Provider Nurse Practitioner Family
DX: J44.9 Chronic obstructive pulmonary disease, unspecified (principal); F17.200 Nicotine dependence, unspecified, uncomplicated; Z13.220 Encounter for screening for lipoid disorders
CPT/HCPCS: 94010; 94640; J7613

== ENCOUNTER 2025-03-24 08:31 | Outpatient (CLI) | payer BC, SELFPAY ==
[2025-03-24 16:13] LABS: Alanine Aminotransferase 23 U/L (12-78); Albumin Level 4.5 g/dl (3.5-5.0); Alkaline Phosphatase 90 U/L (38-126); Anion Gap 10.5 mEq/L (5-15); Aspartate Amino Transferase 28 U/L (17-59); Bilirubin,Total 0.4 mg/dl (0.2-1.3); Blood Urea Nitrogen 10 mg/dl (9-20); Calcium 9.4 mg/dl (8.4-10.2); Carbon Dioxide 25 mmol/L (22.0-30.0); Chloride 107 mmol/L (98-107); Chol/HDL Ratio 3.9 (1-3.5); Cholesterol 113 mg/dl (140-200); Estimated Glomerular Filt Rate 113 ml/min (>60); GFR (African American) 137 ML/MIN (>60); Globulin 2.2 g/dL (1.3-3.2); Glucose 101 mg/dl (74-100); HDL Cholesterol 29 mg/dl (40-60); Potassium 4.5 mmoL/L (3.5-5.1); Sodium 138 mmol/L (136-145); Total Protein,Serum 6.7 g/dl (6.3-8.2); Triglycerides 127 mg/dl (30-150); VLDL Cholesterol 25 mg/dL (0-40)
[2025-03-24 16:25] LABS: Direct LDL Cholesterol 58.58 mg/dL (100-129)
== END 2025-03-24 23:59 ==
LOC: LAB.DROPOF 03-26 08:32
PROVIDERS: PCP Nurse Practitioner Family; Visit Provider Nurse Practitioner Family
DX: I10 Essential (primary) hypertension (principal); R41.3 Other amnesia; F17.210 Nicotine dependence, cigarettes, uncomplicated
CPT/HCPCS: 80053; 80061

== ENCOUNTER 2025-05-17 13:03 | Day surgery (SDC) | payer BC, SELFPAY ==
[2025-05-12 12:41] VITALS: BMI 25.0
[2025-05-17] MEDS: LACTATED RINGERS 1000ML 1,000 ML 50 ML IV (13:32)
[2025-05-17 13:33] VITALS: BP 136/80; PULSE 72; RESP 18; TEMP 36.1; O2SAT 98
--- NOTE | 2025-05-17 13:54 | P.PNANES_ITS ---
[facility] Disclaimer: The information contained in this section may have been updated after the patient was seen, as this information can be updated by other users. Medical History HTN (hypertension) with goal to be determined Amnesia Encounter to establish care Encounter for prostate cancer screening Encounter for screening for malignant neoplasm of lung in current smoker with 30 pack year history or greater Encounter for screening for diabetes mellitus Fatigue Screening for lipid disorders COPD (chronic obstructive pulmonary disease) Surgical History Hx laparoscopic cholecystectomy Hx of colonoscopy Hx of right knee surgery History of dental surgery No significant past surgical history Family History Other No significant family history Social History Smoking Status: Current every day smoker tobacco type: cigarettes alcohol intake: never substance use type: denies use current occupational status: employed Travel in the last 8 weeks?: None Have you lived/traveled outside [place] in past 30 days?: No Contact w/someone who lives/traveled outside US past 30 days?: No Exposure to someone with infectious disease in past 14 days?: No Do you have a fever (greater than 100.4 F or 38 C)?: No Have you tested positive for COVID-19?: No Exposed to someone with COVID-19 in past 14 days?: No Do you have a sore throat?: No Do you have a cough?: No Do you have any weakness?: No Do you have any diarrhea?: No Are you experiencing any unusual bleeding?: No Do you have any muscle aches/pain?: No Do you have any abdominal pain?: No Are you experiencing loss of taste or smell?: No [facility] Anesthesia Checklist Patient Identification Patient Identification: Arm Band and Verbal (Name & ) Structural Data Admitted From: Home Planned Operative Procedure/s: colonscopy Verified Documents: Surgical Consent and History and Physical NPO Status Verified Time NPO: 00:00 Additional verifications Anesthesia Reactions: No Previous Colonoscopy: Yes Airway Assessment Mallampati Score:: Class II Dentition: Edentulous Neurological Assessment Level of Consciousness: Awake, Alert and Appropriate Hx Seizures: No Anesthesia Plan Anesthesia Risk discussed: Yes Anesthesia Plan: Verified ASA Class: III Anesthesia Type: MAC
--- NOTE | 2025-05-17 14:53 | P.HP_ITS ---
History of Present Illness *Admission Date: 05/17/25 *Reason for visit:: Screening colonoscopy *History of present illness: Mr. Wood is a 64-year-old gentleman who is here for screening colonoscopy. The patient's last colonoscopy was 10 years ago and he does state that a couple of polyps were removed (unspecified). The examination is deemed medically necessary for screening colonoscopy. The patient has been seen, interviewed and examined prior to the procedure by both myself and the anesthesia provider. [facility] Disclaimer: The information contained in this section may have been updated after the patient was seen, as this information can be updated by other users. Medical History HTN (hypertension) with goal to be determined Amnesia Encounter to establish care Encounter for prostate cancer screening Encounter for screening for malignant neoplasm of lung in current smoker with 30 pack year history or greater Encounter for screening for diabetes mellitus Fatigue Screening for lipid disorders COPD (chronic obstructive pulmonary disease) Surgical History Hx laparoscopic cholecystectomy Hx of colonoscopy Hx of right knee surgery History of dental surgery No significant past surgical history Family History Other No significant family history Social History Smoking Status: Current every day smoker tobacco type: cigarettes alcohol intake: never substance use type: denies use current occupational status: employed Travel in the last 8 weeks?: None Have you lived/traveled outside US in past 30 days?: No Contact w/someone who lives/traveled outside US past 30 days?: No Exposure to someone with infectious disease in past 14 days?: No Do you have a fever (greater than 100.4 F or 38 C)?: No Have you tested positive for COVID-19?: No Exposed to someone with COVID-19 in past 14 days?: No Do you have a sore throat?: No Do you have a cough?: No Do you have any weakness?: No Do you have any diarrhea?: No Are you experiencing any unusual bleeding?: No Do you have any muscle aches/pain?: No Do you have any abdominal pain?: No Are you experiencing loss of taste or smell?: No Other Medical History Have you received the Flu Vaccine for this season: No Have you received the Pneumonia Vaccine: No Review of Systems Review of Systems Review of systems (narrative): Negative *Cardiovascular Comments: Negative *Gastrointestinal Comments: Negative *Genitourinary Comments: Negative *Musculoskeletal Comments: Negative *Neurologic Comments: Negative Meds Home Medications and Allergies Home Medications ?Medication ?Instructions ?Recorded ?Confirmed ?Type albuterol sulfate 90 mcg/actuation 2 puff inhalation Q 4-6H PRN 02/18/25 05/12/25 Rx aerosol inhaler bronchospasm #8.5 grams cholecalciferol (vitamin D3) 50 50 mcg PO DAILY #90 ca ps 02/18/25 05/12/25 Rx mcg (2,000 unit) capsule fluticasone fur. 100 mcg-umeclid 1 inh inhalation PATRICIO Y #60 ea 02/18/25 05/12/25 Rx 62.5 mcg-vilant 25 mcg inhalat.powder (Trelegy Ellipta) mecobalamin (vitamin B12) 1,000 1,000 mcg PO DAILY #90 tabs 02/18/25 05/12/25 Rx mcg chewable tablet rosuvastatin 40 mg tablet 40 mg PO DAILY #90 tabs 04/0 02/0905/12/25 Rx bupropion HCl 150 mg tablet,12 hr 150 mg PO BID #180 e a 03/24/25 05/12/25 Rx sustained-release (Wellbutrin SR) New Prescriptions to Start Prescriptions: Allergies Allergy/AdvReac Type Severity Reaction Status Date / Time No Known Allergies Allergy Verified 05/17/25 13:31 Exam Data for Last 24 hours Vital signs and Labs for Last 24 Hours: Temp Pulse Resp BP Pulse Ox O2 Del Method 97.0 F L 72 18 136/80 98 Room Air 05/17/25 13:33 05/17/25 13:33 05/17/25 13:33 05/17/25 13:33 05/17/25 13:33 05/17/25 13:33 *Routine HEENT Exam Head: Present normocephalic Eye: Present EOMI and PERRL ENT: Present mucous membranes moist *Routine Neck Exam Neck: Present supple *Routine Respiratory Exam Respiratory: Present CTA bilaterally *Routine Cardiovascular Exam Cardiovascular: Present RRR *Routine Abdominal Exam Abdominal: Present soft and normoactive bowel sounds; Absent tenderness *Routine Rectal Exam Rectal:: deferred *Routine Genitalia Exam Genitalia:: deferred *Routine Extremities Exam Extremities: Absent cyanosis, clubbing or edema *Routine Skin Exam Skin: Present warm; Absent rash *Routine Neurological Exam Neurological: Present alert and oriented X3 Assessment and Plan *Assessment and plan (1) Screening for colon cancer: Status: Acute Category: Medical Code(s): Z12.11 - Encounter for screening for malignant neoplasm of colon (2) Personal history of colon polyps, unspecified: Status: Acute Category: Medical Code(s): Z86.0100 - Personal history of colon polyps, unspecified Plan A/P: 1. Screening for colon cancer is the preprocedural diagnosis. The patient does state that his last colonoscopy was 10 years ago and he had a couple of polyps removed. The patient will be anesthetized/sedated using MAC sedation. The patient has been seen and examined. Cardiac and lung assessment prior to the examination is stable. Proceed with planned screening colonoscopy.
--- NOTE | 2025-05-17 14:58 | HMH.PROCNOTE ---
[facility] Procedure Note Date: 05/17/25 Time: 15:19 Procedure Note:: Colonoscopy Procedure Report: Colonoscopy with cold snare polypectomy Endoscopist: Celso Atkins II, MD Referring physician: ASHIA Guzman Date of Procedure: May 17, 2025 Equipment: Olympus 190 variable stiffness pediatric colonoscope Sedation: MAC sedation Indication: Mr. Wood is a 64-year-old gentleman who is here for follow-up screening/surveillance colonoscopy. His last colonoscopy was 10 years ago and he does state that he had a couple of benign polyps removed. He reports no abdominal pain, weight loss, change in his bowel habits or rectal bleeding. He does have some chronic constipation and may go up to a week without a bowel movement. He does state that his father had colon cancer in his 80s. Procedure: Prior to the procedure, a history and physical exam was performed, and patient's medications and allergies were reviewed. The risks, benefits and alternatives of the sedation and procedure were discussed with the patient. All questions were answered and informed consent was obtained. The patient was brought to the procedure room. Patient identification and proposed procedure were verified by the physician and the nurse. The patient was placed in a left lateral decubitus position and the scope was passed under direct vision. Throughout the procedure, the patient's blood pressure, pulse, and oxygen saturations were monitored continuously. The colonoscopy was accomplished without difficulty. The patient tolerated the procedure well. Findings: On digital rectal examination there was normal rectal tone. There were no external hemorrhoids. The prostate was 2+, mildly firm but symmetric without nodules. The colonoscope was introduced through the anal canal to the rectum and advanced to the cecum. The ileocecal valve and appendiceal orifice were identified. The scope was advanced a short distance into the ileum which appeared grossly normal. The scope was then withdrawn into the colon. There were 3 polyps (cecum x 1 (4 mm), ascending x 1 (5 mm) and descending x 1 (4 mm)). These were all removed via cold snare polypectomy. The remaining cecum, ascending, transverse, descending, sigmoid and rectum were grossly normal. There were no other mucosal abnormalities identified. Upon retroflexion within the rectum there were grade 1-2 internal hemorrhoids. The preparation was excellent throughout with [place] Preparation Score of 9. The cecal time was 12 minutes. Impression: 1. Diminutive colonic polyps x 3 Plan: I will follow-up the polyp histology and recommend repeat surveillance colonoscopy again in 5 years based upon the pathology. I would recommend a fiber bowel regimen on a long-term daily maintenance basis.
[2025-05-17 15:23] VITALS: BP 94/56; PULSE 80; RESP 20; TEMP 36.3; O2SAT 96
[2025-05-17 15:33] VITALS: BP 97/69; PULSE 72; RESP 20; O2SAT 97
[2025-05-17 15:43] VITALS: BP 111/63; PULSE 61; RESP 20; O2SAT 96
[2025-05-17 15:53] VITALS: BP 125/71; PULSE 58; RESP 20; TEMP 36.3; O2SAT 96
== END 2025-05-17 15:55 | disposition home or self-care (01) ==
PROVIDERS: PCP Nurse Practitioner Family; Visit Provider Internal Medicine Gastroenterology
PROC: 0DJD8ZZ Inspection of Lower Intestinal Tract, Via Natural or Artificial Opening Endoscopic (ICD-10-PCS; CPT 45378; principal; 2025-05-17 14:30)
DX: D12.0 Benign neoplasm of cecum (principal); D12.2 Benign neoplasm of ascending colon; D12.4 Benign neoplasm of descending colon; J44.9 Chronic obstructive pulmonary disease, unspecified; I10 Essential (primary) hypertension; F17.210 Nicotine dependence, cigarettes, uncomplicated; Z79.899 Other long term (current) drug therapy
CPT/HCPCS: 45385; J2003; J2704; J7120

== ENCOUNTER → 2025-07-14 06:41 | Outpatient (CLI) | payer BC, SELFPAY ==
--- OUTSIDE RECORDS SUMMARY | 2025-05-28 09:00 | XMS_ITS | Encounter Summary ---
Author Organization [facility] Address [address] [place] [address] Care Team Providers Care Alum Operator Name Role Phone Nino Read MD Primary Care Provider [phone] Reason for Referral * Imaging (Routine) - Pending Review Specialty Diagnoses / Procedures Referred By Contac t Referred To Contact Radiology Diagnoses Abdominal aortic aneurysm (AAA) without rupture, unspecified part ([facility]) Procedures CT Angio Abdomen Lio Delgado APRN [address] [facility] [address] [place] [address] Phone: tel: fax: Referral ID Status Reason Start Date Expiration Date V isits Requested Visits Authorized [id number] Pending Review 05/28/2025 11/27/2026 1 1 Reason for Visit * Reason Comments Encounter for screening for malignant ne oplasm of respirat Nicotine dependence, unspecified, uncomp licated Encounter for screening for diabetes leticia litus Other fatigue Abdominal aortic aneurysm, without ruptu re, unspecified Encounter for screening for lipoid disor ders * Consultation (Urgent) - Closed Specialty Diagnoses / Procedures Referred By Contact Referred To Contact Vascular Surgery / [facility] Diagnoses Encounter for screening for malignant neoplasm of respiratory organs Nicotine dependence, unspecified, uncomplicated Encounter for screening for diabetes mellitus Other fatigue Abdominal aortic aneurysm, without rupture, unspecified (CMS/HCC) Encounter for screening for lipoid disorders Rachel Amos, [employer] AGENT [address] [place] [address] Phone: tel:[phone] fax:[phone] [facility] [address] [place] [address] Phone: tel: fax: Referral ID Status Reason Start Date Expiration Date V isits Requested Visits Authorized [id number] Closed Specialty Services Required 03/01/2025 08/31/2026 1 1 Encounter Details Date Type Department Care Team (Latest Contact Info) Description 05/28/2025 9:00 AM EDT Office Visit [facility] [address] [facility] [address] [facility] [address] [place] [address] Lio Delgado, [employer] AGENT [address] [facility] [address] [place] [address] Abdominal aortic aneurysm (AAA) without rupture, unspecified part (CMS/HCC) (Primary Dx); Pre-diabetes Social History Tobacco Use Types Packs/Day Years Used Date Smoking Tobacco: Every Day Cigarettes 1 15 Passive Smoke Exposure: Current Smokeless Tobacco: Never Alcohol Use Standard Drinks/Week Comments Never 0 (1 standard drink = 0.6 oz pur e alcohol) AUDIT-C Answer Date Recorded Q1: How often do you have a drink containing alcohol? Never 05/28/2025 Q2: How many drinks containi ng alcohol do you have on a typical day when you are drinking? Patient does not drink Q3: How often do you have si x or more drinks on one occasion? Never 05/28/2025 Sex and Gender Information Value Date Recorded Sex Assigned at Not on file Legal Sex Male 7:08 PM EDT Gender Identity Not on file Sexual Orientation Not on file documented as of this encounter Last Filed Vital Signs Vital Sign Reading Time Taken Comments Blood Pressure 122/79 05/28/2025 9:25 AM EDT Pulse 78 05/28/2025 9:12 AM EDT Temperature 36.4 C (97.6 F) 05/28/2025 9:12 AM EDT Respiratory Rate - - Oxygen Saturation 97% 05/28/2025 9:12 AM EDT Inhaled Oxygen Concentration - - Weight 76.2 kg (167 lb 15.9 oz) 05/28/2025 9:12 AM EDT Height 175.3 cm (5' 9 ) 05/28/2025 9:12 AM EDT Body Mass Index 24.81 05/28/2025 9:12 AM EDT documented in this encounter Functional Status * AUDIT-C Score Answer Date of Assessment Author 0 05/28/2025 9:14 AM EDT Surinder Reeder * Question Answer Date of Assessment Author Q1: How often do you have a drink containing alcohol? Never 05/28/2025 9:14 AM EDT Lilo Reeder Q2: How many drinks containing alcohol do you have on a typical day when you are drinking? Patient does not drink 05/28/2025 9:14 AM EDT Lilo Reeder Q3: How often do you have six or more drinks on one occasion? Never 05/28/2025 9:14 AM EDT Lilo Reeder documented as of this encounter Miscellaneous Notes * Progress Notes - Lio Delgado, [employer] AGENT - 05/28/2025 9:00 AM EDT Dear Nino Read MD, HPI We had the pleasure of seeing your patient, Beltran oWod, in clinic today in consult for his Abdominal Aortic Aneurysm. He has a PMHx of hypertension, SOB, emphysema, COPD, bronchitis, pre-diabetes, headaches, and visual disturbances. He initially presented to a [facility] ED in January where he was subsequently diagnosed with a AAA. Since initial diagnoses he has not had any new symptoms and states he is not exhibiting back pain, leg pain, or abdominal pain. At today's visit the maximal diameter is4.6cm centimeters, which is not significantly changed from the previous studies. I personally and independently reviewed the CT Images from visit on 02/11/2025 which showed: Stable aneurysm at 4.6cm His chronic comorbid conditions that impact our treatment planning include: Patient Active Problem List Diagnosis Date Noted Abdominal aortic aneurysm (AAA) without rupture (CMS/HCC) 05/28/2025 Pre-diabetes 05/28/2025 The following portions of the chart were reviewed this encounter and updated as appropriate: Tobacco Allergies Meds Problems Med Hx Surg Hx Fam Hx Subjective Review of Systems All other systems reviewed and are negative. A 14 point ROS was obtained and is negative otherwise noted in HPI. Objective Physical Exam Constitutional: well developed, well nourished, and in no acute distress Respiratory: Normal expansion. Clear to auscultation. No rales, rhonchi, or wheezing. Cardiac: Heart sounds are normal. Regular rate and rhythm without murmur, gallop or rub. Abdomen: Soft, non-tender, normal bowel sounds; no bruits, organomegaly or masses. Musculoskeletal: normal strength, tone, and muscle mass, no deformities Psychiatric: oriented to time, place and person, mood and affect are within normal limits Neurologic: normal sensation and reflexes and motor intact Skin: Welty, warm, well perfused Assessment/Plan In Summary: Beltran Wood is a 64 y.o. year old male who we saw today in clinic. He is asymptomatic. Aneurysm is measuring 4.6 cm this visit. We will see him back for surveillance in 3 months. He is to start ASA. Below is a summary of the diagnoses addressed in today's visit and any associated orders: - RTC in 3 months with CTA abdomen - Begin ASA (Obtaining OTC) - Continue statin. - Monitor BP (Obtaining monitor for home use) Problem List Items Addressed This Visit Circulatory Abdominal aortic aneurysm (AAA) without rupture (CMS/HCC) - Primary Endocrine/Metabolic Pre-diabetes We will see him back for: Follow up in about 3 months (around 08/28/2025) for Recheck. The patient was counseled on the importance of: - aspirin therapy for overall cardiovascular health - statin therapy for control of hyperlipidemia and plaque stabilization - blood pressure monitoring - proper nutrition, exercise and maintaining a healthy weight. documented in this encounter Plan of Treatment Upcoming Encounters Date Type Department Care Team (Late st Contact Info) Description 08/27/2025 10:00 AM EDT Office Visit [facility] [address] [facility] [address] [place] [address] Lio Delgado APRN [address] [facility] [address] [place] [id number] Scheduled Orders Name Type Priority Associated Diagnoses Orde r Schedule CT Angio Abdomen Imaging Routine Abdominal aortic aneurysm (AAA) without rupture, unspecified part ([facility]) Expected: 08/28/2025 (Approximate), Expires: 11/29/2026 documented as of this encounter Visit Diagnoses Diagnosis Abdominal aortic aneurysm (AAA) without rupture, unspecified part ([facility])- Primary Pre-diabetes Other abnormal glucose documented in this encounter Additional Health Concerns Assessment Noted Time A fall risk assessment has been complete d for the patient 05/28/2025 9:22 AM EDT A Body Mass Index follow-up plan has been documented for the patient 05/28/2025 10:20 AM EDT documented as of this encounter Care Teams Alum Operator Relationship Specialty [place] [address] [place] [id number] PCP - General 03/31/21 documented as of this encounter
--- OUTSIDE RECORDS SUMMARY | 2025-07-14 06:43 | XMS_ITS | Encounter Summary ---
Author Organization [facility] Address [address] [place] [address] Care Team Providers Care Stationary Engineer Supervisor Name Role Phone Nino Read MD Primary Care Provider [phone] Encounter Details Date Type Department Care Team (Late st Contact Info) Description 02/11/2025 Orders Only External Location [address] [place] [address] Provider, External Social History Tobacco Use Types Packs/Day Years Used Date Smoking Tobacco: Never Assessed Sex and Gender Information Value Date Recorded Sex Assigned at Not on file Legal Sex Male 7:08 PM EDT Gender Identity Not on file Sexual Orientation Not on file documented as of this encounter Plan of Treatment Upcoming Encounters Date Type Department Care Team (Late st Contact Info) Description 08/27/2025 10:00 AM EDT Office Visit [facility] [address] [facility] [address]th Floor [address] [place] [address] Lio Delgado C, ANKUR [address] [facility] [address] [place] [address] documented as of this encounter Procedures Procedure Name Priority Date/Time Associated Diagnosis Comments CT [facility] OUTSIDE IMAGES 02/11/2025 8:25 AM EDT documented in this encounter Results * CT [facility]K OUTSIDE IMAGES (02/11/2025 8:25 AM EDT) Anatomical Region Laterality Modality Computed Tomogra phy 02/11/2025 8:25 AM EDT us External Provider IMG CT PROCEDURES Final Result documented in this encounter Visit Diagnoses Not on filedocumented in this encounter Care Teams Stationary Engineer Supervisor Relationship Specialty Start Date End Date Nino Read MD [address] [place] [address] PCP - General 03/31/21 documented as of this encounter
--- OUTSIDE RECORDS SUMMARY | 2025-07-14 06:43 | XMS_ITS | Clinical Summary ---
Author Organization [facility] Address [address] [place] [address] Phone Care Team Providers Care Composing Room Supervisor Name Role Phone Nino Read MD Primary Care Physician [phone] [ ] Conditions or Problems Problem Name Problem Code Onset Date Status Entry Date Provider Comment Standard Description Annotate Body mass index (BMI) 24.0-24.9; adult Z68.24 (ICD-10-CM ) 12/21 Active 12/21 Nino Read MD Body mass index [BMI] 24.0-24.9, adult Body mass index (BMI) 24.0-24.9; adult Z68.24 (ICD-10-CM ) 04/23 Correction 04/23 Nino Read MD Body mass index [BMI] 24.0-24.9, adult Special screening for malignant neoplasm of the respiratory organs 220803045 (SNOMED CT) 12/21 Inactive 12/21 Nino Read MD Screening for malignant neoplasm of respiratory tract Body mass index (BMI) 24.0-24.9; adult Z68.24 (ICD-10-CM ) 04/23 Removed 04/23 Nino Read MD Body mass index [BMI] 24.0-24.9, adult Body mass index (BMI) 24.0-24.9; adult Z68.24 (ICD-10-CM ) 01/05 Correction 01/05 Nino Read MD Body mass index [BMI] 24.0-24.9, adult Body mass index (BMI) 24.0-24.9; adult Z68.24 (ICD-10-CM ) 01/05 Removed 01/05 Nino Read MD Body mass index [BMI] 24.0-24.9, adult Body mass index (BMI) 25.0-25.9; adult Z68.25 (ICD-10-CM ) 08/06 Correction 08/06 Nino Read MD Body mass index [BMI] 25.0-25.9, adult Body mass index (BMI) 25.0-25.9; adult Z68.25 (ICD-10-CM ) 08/06 Removed 08/06 Mickell Denver MA Body mass index [BMI] 25.0-25.9, adult Body mass index (BMI) 23.0-23.9; adult Z68.23 (ICD-10-CM ) 05/01 Correction 05/01 Mickell Denver MA Body mass index [BMI] 23.0-23.9, adult Flu shot 64838316 (SNOMED CT) 08/06 Inactive 08/06 Mickell Denver MA Administration of influenza vaccine Body mass index (BMI) 23.0-23.9; adult Z68.23 (ICD-10-CM ) 05/01 Removed 05/01 Nino Read MD Body mass index [BMI] 23.0-23.9, adult Body mass index (BMI) 24.0-24.9; adult Z68.24 (ICD-10-CM ) 01/29 Correction 01/29 Nino Read MD Body mass index [BMI] 24.0-24.9, adult Viral URI 368396254 (SNOMED CT) 05/01 Inactive 05/01 Nino Read MD Viral upper respiratory tract infection Body mass index (BMI) 24.0-24.9; adult Z68.24 (ICD-10-CM ) 01/29 Removed 01/29 Nino Read MD Body mass index [BMI] 24.0-24.9, adult Tobacco abuse 29222318 (SNOMED CT) 04/04 Active 04/04 Nino Read MD Tobacco dependence syndrome Chronic bronchitis 59418738 (SNOMED CT) 04/04 Active 04/04 Nino Read MD Chronic bronchitis VITAMIN D DEFICIENCY 67107499 (SNOMED CT) 04/12 Active 04/12 Nino Read MD Vitamin D deficiency Prediabetes 5706016 (SNOMED CT) 04/12 Active 04/12 Nino Read MD Impaired glucose tolerance HYPERLIPIDEM IA 91634738 (SNOMED CT) 03/13 Active 03/13 Nino Read MD Hyperlipidemia Screening, colon cancer 109715211 (SNOMED CT) 03/08 Inactive 03/08 Nino Read MD Screening for malignant neoplasm of colon Fhx of DM 880668719 (SNOMED CT) 03/08 Active 03/08 Nino Read MD Family history of diabetes mellitus Erectile dysfunction 058158835 (SNOMED CT) 03/08 Active 03/08 Nino Read MD Impotence DYSPNEA 812277675 (SNOMED CT) 03/08 Active 03/08 Nino Read MD Dyspnea CONSTIPATION 82514169 (SNOMED CT) 03/08 Active 03/08 Nino Read MD Constipation Medications Medication Instructions Start Date Stop Date Generic Name [facility] Provider FIDE FONSECA USE DIRECTED WITH VENTOLIN INHALER SPACER/AERO-HOLDI NG CHAMBERS [id number] Nino Raed MD VENTOLIN HFA 108 (90 Base) MCG/ACT AERS INHALE 2 PUFFS INTO THE LUNGS EVERY 4 HOURS NEEDED FOR WHEEZING ALBUTEROL SULFATE 64269877454 Nino Read MD TRIAMCINOLONE ACETONIDE 0.1 % OINT APPLY TO AFFECTED AREA TWICE A DAY TRIAMCINOLONE ACETONIDE 59079992762 Nino Read MD SHINGRIX 50 MCG/0.5ML SUSR PLEASE ADMINISTER .5 ML NOW AND REPEAT DOSE IN 2-6 MONTHS ZOSTER VAC RECOMB ADJUVANTED 37209453694 Nino Read MD ATORVASTATIN CALCIUM 40 MG TABS TAKE 1 TABLET DAILY (AT BEDTIME) ATORVASTATIN CALCIUM 62697055784 Nino Read MD ATORVASTATIN CALCIUM 40 MG TABS TAKE 1 TABLET BY MOUTH AT BEDTIME ATORVASTATIN CALCIUM 78490429974 Nino Read MD VITAMIN D 50 MCG (2000 UT) TABS TAKE 1 TABLET BY MOUTH ONCE A DAY CHOLECALCIFEROL 81986212503 Nino Read MD BREO ELLIPTA 100-25 MCG/ACT AEPB USE 1 INHALATION ONCE A DAY FLUTICASONE FUROATE-VILANTERO L 67354633796 Nino Read MD BROMFED DM 30-2-10 MG/5ML ORAL SYRUP TAKE 10 ML BY MOUTH 4 TIMES A DAY NEEDED FOR COUGH PSEUDOEPH-BROMPHE N-DM 55687673743 Nino Read MD BUPROPION HCL ER (SR) 150 MG [id number]-[id number] TAKE 1 CAPSULE BY MOUTH EACH DAY FOR 3 DAYS THEN 1 BY MOUTH 2 TIMES A DAY BUPROPION HCL 32514076423 Nino Read MD BUPROPION HCL ER (SR) 150 MG [id number]-[id number] TAKE 1 CAPSULE BY MOUTH EACH DAY FOR 3 DAYS THEN 1 BY MOUTH 2 TIMES A DAY BUPROPION HCL 32207982080 Nino Read MD CHANTIX CONTINUING MONTH KRISTAL 1 MG ORAL TABLET TAKE 1 TABLET TWICE A DAY VARENICLINE TARTRATE 04460260886 Nino Read MD ATORVASTATIN CALCIUM 20 MG TABS TAKE 1 TABLET BY MOUTH AT BEDTIME ATORVASTATIN CALCIUM 30350661645 Nino Read MD CHANTIX CONTINUING MONTH KRISTAL 1 MG ORAL TABLET TAKE 1 TABLET TWICE A DAY VARENICLINE TARTRATE 85529996949 Nino Read MD CHANTIX STARTING MONTH KRISTAL 0.5 MG X 11 & 1 MG X 42 ORAL TABLET USE DIRECTED VARENICLINE TARTRATE 67310109920 Nino Read MD SYMBICORT 160-4.5 MCG/ACT AERO USE 2 INHALATIONS TWICE A DAY BUDESONIDE-FORMOT LAQUITA FUMARATE 72834135363 Nino Read MD FLOVENT HFA 110 MCG/ACT INHALATION AEROSOL TAKE 2 INHALATIONS TWICE A DAY FLUTICASONE PROPIONATE HFA 35847255830 Nino Read MD DOCUSATE SODIUM 100 MG CAPS TAKE 1-2 CAPSULE(S) BY MOUTH EVERY NIGHT AT BEDTIME NEEDED FOR CONSTIPATION DOCUSATE SODIUM 02269425155 Denia Soliz MIRALAX 17 GM/SCOOP POWD 1 SCOOP 2 TIMES A DAY MIXED IN 6 OZ OF WATER FOR CONSTIPATION POLYETHYLENE GLYCOL 3350 [id number] Denia Soliz VITAMIN D 50 MCG (2000 UT) TABS TAKE 1 TABLET BY MOUTH ONCE A DAY CHOLECALCIFEROL 86919314834 Nino Read MD VENTOLIN HFA 108 (90 Base) MCG/ACT AERS TAKE 2 INHALATIONS EVERY 4 HOURS NEEDED FOR WHEEZING ALBUTEROL SULFATE 42703143364 Nino Read MD VITAMIN D (ERGOCALCIFEROL) 1.25 MG (58915 UT) CAPS TAKE 1 CAPSULE BY MOUTH 2 TIMES PER WEEK ERGOCALCIFEROL 95691043742 Nino Read MD ATORVASTATIN CALCIUM 20 MG TABS TAKE 1 TABLET BY MOUTH AT BEDTIME ATORVASTATIN CALCIUM 15406825750 Nino Read MD MIRALAX 17 GM/SCOOP POWD 1 SCOOP 2 TIMES A DAY MIXED IN 6 OZ OF WATER FOR CONSTIPATION POLYETHYLENE GLYCOL 3350 58332294225 Nino Read MD DOCUSATE SODIUM 100 MG CAPS TAKE 1-2 CAPSULE(S) BY MOUTH EVERY NIGHT AT BEDTIME NEEDED FOR CONSTIPATION DOCUSATE SODIUM 88417468941 Nino Read MD Medications Administered No information available. Allergies, Adverse Reactions, Alerts Observed no known allergies at Results Date Name Value Unit Range Flag Description Lab Report: LIPID PANEL WITH REFLEX TO DIRECT LDL, LIPID PANEL WITH REFL ... TSHREFLX FT4 0.77 m[iU]/L 0.40-4.50 N TSH (t hyroid stimulating hormone) with reflex FT4 TESTO, TOTAL 547 ng/dL 250-827 N Testoste jeanette [Mass/volume] in Serum or Plasma BASO % MANU 0.5 % N basophils as percent of blood leukocytes, manual count EOS % MANU 1.2 % N eosinophil s as percent of blood leukocytes, manual count MONOCYTE % 5.5 % N Monocytes/ 100 leukocytes in Blood by Automated count LYMPH% P BLD 22.2 % N lymphocy camryn as percent of blood leukocytes PMN % 70.6 % N Neutrophils/1 00 leukocytes in Blood by Automated count ABS BASOS 51 {Cells}/ uL 0-200 N Basophils [#/volume] in Blood ABS EOS 121 {Cells}/ uL 15-500 N Eosinophils [#/volume] in Blood ABS MONOS 556 {Cells}/ uL 200-950 N Monocytes [#/volume] in Blood ABSLYMPHCT 2242 {Cells}/ uL 850-3900 N Lymphocytes [#/volume] in Blood ABS NEUTROPH 7131 CELLS/UL 10*3/uL 5889-9213 N Neutrophils [#/volume] in Blood PLATELETK/UL 313 THOUSAND/UL 10*3/uL 140-400 N platelet count RDW 14.4 % 11.0-15.0 N Erythrocyte distribution width [Ratio] by Automated count OL-MCHC 33.6 g/dL 32.0-36.0 N mean corpus cular hemoglobin concentration, rbc MCH 31.3 pg 27.0-33.0 N MCH [Entiti c mass] by Automated count MCV 93.3 fL 80.0-100. 0 N MCV [Entitic volume] by Automated count HCT 48.3 % 38.5-50.0 N Hematocrit [Volume Fraction] of Blood by Automated count HGB 16.2 g/dL 13.2-17.1 N Hemoglobin [Mass/volume] in Blood RBC M/UL 5.17 MILLION/UL 10*6/uL 4.20-5.80 N red blood count WBC CT BLOOD 10.1 10*3/uL 3.8-10.8 N leukocy te count, blood TRIGLYCRDES 174 mg/dL <150 H Triglycer kary [Mass/volume] in Serum or Plasma - mg/dL Lab Report: Comprehensive Me tabolic Panel LDL DIR 110 mg/dL <=100 H Cholesterol i n LDL [Mass/volume] in Serum or Plasma - mg/dL TRIGLYCERIDE 116 mg/dL <=150 Triglyce ride [Mass/volume] in Serum or Plasma - mg/dL ALBUMIN 4.3 g/dL 3.5-5.2 Albumin [Mass/volume] in Serum or Plasma BG RANDOM 119 mg/dL 74-100 H Glucose [Mass/volume] in Blood ANION GAP 13 mmol/L 7-16 Anion gap 4 in Serum or Plasma CHLORIDE 101 mmol/L 98-107 Chloride [Moles/volume] in Serum or Plasma Lab Report: LIPID PANEL WITH REFLEX TO DIRECT LDL, LIPID PANEL WITH REFL ... HGBA1C 5.9 % OF TOTAL HGB % <5.7 H Hemoglobin A1c/Hemoglobin, total in Blood - % VIT D 25-OH 31 ng/mL 30-100 N 25-Hydrox ycalcifero l [Mass/volume] in Serum or Plasma PSA 0.8 ng/mL < OR = 4.0 N Prostate specific Ag [Mass/volume] in Serum or Plasma SGPT (ALT) 18 U/L 9-46 N Alanine aminotransferase [Enzymatic activity/volume] in Serum or Plasma SGOT (AST) 16 U/L 10-35 N Aspartate aminotransferase [Enzymatic activity/volume] in Serum or Plasma ALK PHOS 102 U/L 40-115 N Alkaline phosphatase [Enzymatic activity/volume] in Blood BILI TOTAL 0.4 mg/dL 0.2-1.2 N Bilirubin. total [Mass/volume] in Serum or Plasma A/G RATIO 1.6 (calc) 1.0-2.5 N Albumin/ Globulin [Mass Ratio] in Serum or Plasma GLOBULIN TOT 2.9 G/DL (CALC) g/dL 1.9-3.7 N Globulin [Mass/volume] in Serum ALBUMIN EOP 4.7 g/dL 3.6-5.1 N Albumin [Mass/volume] in Serum or Plasma by Electrophoresis PROTEIN, TOT 7.6 g/dL 6.1-8.1 N Protein [Mass/volume] in Serum or Plasma CALCIUM 10.0 mg/dL 8.6-10.3 N Calcium [Moles/volume] in Serum or Plasma CO2 28 mmol/L 20-32 N Carbon dioxid e, total [Moles/volume] in Venous blood CHLORIDE BLD 106 mmol/L 98-110 N chloride , blood POTASSIUM 5.5 mmol/L 3.5-5.3 H Potassium [Moles/volume] in Serum or Plasma SODIUM 140 mmol/L 135-146 N Sodium [Moles/volume] in Serum or Plasma BUN/CREAT NOT APPLICABLE (calc) 6-22 Urea nitrogen/Creatinine [Mass Ratio] in Serum or Plasma EGFR IF AFA 111 mL/min/1 .73m2 >OR = 60 N Glomerular filtration rate/1.73 sq M.predicted among blacks [Volume Rate/Area] in Serum, Plasma or Blood by Creatinine-based formula (MDRD) EGFR 96 mL/min/1 .73m2 >OR = 60 N Glomerular filtration rate/1.73 sq M.predicted [Volume Rate/Area] in Serum, Plasma or Blood by Creatinine-based formula (MDRD) CREATININE 0.82 mg/dL 0.70-1.25 N Creatini ne [Mass/volume] in Serum or Plasma BUN 7 mg/dL 7-25 N Urea nitrogen [Mass/volume] in Serum or Plasma GLUCOSE SER 94 mg/dL 65-139 N Glucose [Mass/volume] in Serum or Plasma NON-HDL CHOL 127 MG/DL (CALC) mg/dL <130 N cholesterol, non-HDL, total CHOL/HDL % 5.2 (calc) <5.0 H cholest laquita/HDL ratio, serum, percent LDL 100 MG/DL (CALC) mg/dL H Cholesterol in L DL [Mass/volume] in Serum or Plasma - mg/dL TRIGLYC TOT 176 mg/dL <150 H Triglycer kary [Mass/volume] in Serum or Plasma - mg/dL HDL 30 mg/dL >40 L Cholesterol i n HDL [Mass/volume] in Serum or Plasma - mg/dL CHOLESTEROL 157 mg/dL <200 N Cholester ol [Mass/volume] in Serum or Plasma - mg/dL Plan of Care Type Date Detail Referral Gastroenterology Referral [facility], [address], [place], [address] Lung w/o Cont rast Low Dose Pending Order exclud ed from report: Pending order T1 CMP Pending order T1 HGBA1c Pending order T1 Lipid Panel Pending order T2 Vitamin D 25 Hydroxy Pending order T1 Prostate Scre ening Pending order Fluzone Quadriva lent Preservative Free prefilled syringe (36 mos +) Pending order IMADM >18YR IM R OUTE 1ST VAC/TOXOID Pending order T1 CMP Pending order T1 Lipid Panel Pending order T1 HGBA1c Pending order SNOMED-CT: 26662 001 Procedure, Performed: Colonoscopy Pending Order exclud ed from report: Pending order T1 CMP Pending order T1 HGBA1c Pending order T1 Lipid Panel Pending order SNOMED-CT: 72256 001 Procedure, Performed: Colonoscopy Pending Order exclud ed from report: Pending order T1 Lipid Panel Pending Order exclud ed from report: Pending order T1 HGBA1c Pending Order exclud ed from report: Pending order T1 CMP Pending Order exclud ed from report: Pending order Fluzone Quadriva lent Preservative Free prefilled syringe (36 mos +) Pending order IMADM >18YR IM R OUTE 1ST VAC/TOXOID Pending order SNOMED-CT: 97276 001 Procedure, Performed: Colonoscopy Pending Order exclud ed from report: Pending order T1 CMP Pending order T1 Lipid Panel Pending order T2 Vitamin D 25 Hydroxy Pending order SNOMED-CT: 85695 001 Procedure, Performed: Colonoscopy Pending Order exclud ed from report: Pending order CMP Pending order HGBA1c Pending order Lipid Panel Pending order Adacel Pending order Fluzone Quadriva lent Preservative Free Intramuscular Suspension 0.5 ML Pending order IMADM >18YR IM R OUTE 1ST VAC/TOXOID Pending order IMADM >18YR IM R OUTE EA ADDL VAC/TOXOID Pending order SNOMED-CT: 27328 001 Procedure, Performed: Colonoscopy Pending Order exclud ed from report: Pending order X-Ray Chest Pending order Medication Recon ciliation Pending order CMP Pending order HGBA1c Pending order Lipid Panel Pending order Vitamin D 25 Hyd yash Pending order Medication Recon ciliation Pending order CMP Pending order Lipid Panel Pending order HGBA1c Pending order Vitamin D 25 Hyd yash Pending order PFT Full Pending order X-Ray Chest Pending order PFT Full Pending Order exclud ed from report: Pending order Medication Recon ciliation Pending order CMP Pending order HGBA1c Pending order Vitamin D 25 Hyd yash Pending order Current every da y smoker Pending order Smoking cessatio n education Pending order CBC with diff Pending order CMP Pending order Lipid Panel Pending order HGBA1c Pending order TSH reflex to fr ee T4 Pending order Testosterone Tot al Pending order Vitamin D 25 Hyd yash Pending order Prostate Screeni ng Pending order X-Ray Chest Pending Order exclud ed from report: Pending order PFT Full Pending Order exclud ed from report: Pending order SNOMED-CT: 15040 [id number] Current Medications Documented Pending order SNOMED-CT: 47722 001 Procedure, Performed: Colonoscopy Pending order SNOMED-CT: 19845 001 Procedure, Performed: Colonoscopy Pending Order exclud ed from report: Pending order PFT Full Pending order X-Ray Chest Patient education Medications Patient education Medications Patient education Medications Patient education Medications Patient education Medications Patient education Medications Patient education Medications Patient education Patient Educat ion Given Patient education Medications Patient education Patient Educat ion Given Patient education Medications Patient education Patient Educat ion Given Patient education Medications Patient education Patient Educat ion Given Patient education Medications Patient education Patient Educat ion Given Patient education Medications Patient education Medications Patient education Medications Patient education Medications Patient education Medications Patient education CHOLESTEROL%20 AND%20YOUR%20HEALTH Patient education Medications Procedures Code Procedure Name Date Entry Date [facility]-[id number] Medication Reconciliation LDCT G0297 CT Lung w/o Contrast Low Dose CPT-3074F Most recent systolic blood pressure <130 mm Hg CPT-3078F Most recent diastoli c blood pressure <80 mm Hg CPT-41852 Fluzone Quadrivalent Preservative Free prefilled syringe (36 mos +) CPT-55213 IMADM >18YR IM ROUTE 1ST VAC/TOXOID 10/20 [facility] 80392 T1 CMP [facility] 496 T1 HGBA1c [facility] 62243 T1 Lipid Panel [facility] 69021 T2 Vitamin D 25 Hydroxy 2017 [facility] 5363 T1 Prostate Screening 12/21 [facility] 97383 T1 Hepatic Function Panel 20 05/05/07 [facility] 89941 T1 Lipid Panel SCT-457457685743652 Medication Reconciliation CPT-3074F Most recent systolic blood pressure <130 mm Hg CPT-3078F Most recent diastoli c blood pressure <80 mm Hg SCT-928974945 SNOMED-CT: 707857253 Smoking Cessation Counseling SCT-476495100859162 SNOMED-CT: 248323856 246951 Current Medications Documented SCT-75968180 SNOMED-CT: 71271255 Procedure, Performed: Colonoscopy [facility] 496 T1 HGBA1c [facility] 54363 T1 CMP [facility] 39016 T1 Lipid Panel SCT-327833381642074 Medication Reconciliation CPT-3075F Most recent systolic blood pressure 130-139 mm Hg CPT-3078F Most recent diastoli c blood pressure <80 mm Hg SCT-426502444 SNOMED-CT: 684433367 Smoking Cessation Counseling SCT-252224077393241 SNOMED-CT: 472674318 449922 Current Medications Documented SCT-55819721 SNOMED-CT: 23864142 Procedure, Performed: Colonoscopy [facility] 22438 T1 Lipid Panel [facility] 496 T1 HGBA1c [facility] 47941 T1 CMP SCT-736353237777110 Medication Reconciliation CPT-67531 Fluzone Quadrivalent Preservative Free prefilled syringe (36 mos +) CPT-98691 IMADM >18YR IM ROUTE 1ST VAC/TOXOID 08/06 SCT-205753398 SNOMED-CT: 560506908 Smoking Cessation Counseling SCT-517758120078431 SNOMED-CT: 403694450 881214 Current Medications Documented SCT-16361493 SNOMED-CT: 12296747 Procedure, Performed: Colonoscopy [facility] 93425 T1 CMP [facility] 49492 T1 Lipid Panel [facility] 37703 T2 Vitamin D 25 Hydroxy 2016 SCT-057063769073518 Medication Reconciliation CPT-3074F Most recent systolic blood pressure <130 mm Hg CPT-3078F Most recent diastoli c blood pressure <80 mm Hg SCT-077925452 SNOMED-CT: 254121140 Smoking Cessation Counseling SCT-191899967635416 SNOMED-CT: 141051331 966502 Current Medications Documented SCT-68448511 SNOMED-CT: 40558448 Procedure, Performed: Colonoscopy SCT-494404531017320 Medication Reconciliation CPT-3075F Most recent systolic blood pressure 130-139 mm Hg CPT-3079F Most recent diastoli c blood pressure 80-89 mm Hg 88282 [facility] Test # CMP 4 496 [facility] # HGBA1c 55147 [facility] # Lipid Panel 4 SCT-292994818796449 Medication Reconciliation SCT-753898890 SNOMED-CT: 972833879 Smoking Cessation Counseling SCT-372495824022982 SNOMED-CT: 106716919 148044 Current Medications Documented SCT-67465062 SNOMED-CT: 32691562 Procedure, Performed: Colonoscopy CPT-76114 Adacel CPT-96238 Fluzone Quadrivalent Preservative Free Intramuscular Suspension 0.5 ML CPT-50372 IMADM >18YR IM ROUTE 1ST VAC/TOXOID 10/31 CPT-59273 IMADM >18YR IM ROUTE EA ADDL VAC/TOXOID 2 X-Ray Chest X-Ray Chest SCT-992192820461923 Medication Reconciliation SCT-479433027 Current every day smoker 20 03/07/16 SCT-503466533 Smoking cessation education 07117 [facility] Test # CMP 6 496 [facility] # HGBA1c 55877 [facility] # Lipid Panel 6 54170 [facility] # Vitamin D 25 Hydroxy 2 SCT-831858560384344 Medication Reconciliation PFT FULL KAE PFT Full 83777 [facility] # CMP 3 496 [facility] # HGBA1c 14581 [facility] # Vitamin D 25 Hydroxy 2 SCT-404853870640325 Medication Reconciliation SCT-015229920 Current every day smoker 20 03/12/12 SCT-375284053 Smoking cessation education X-Ray Chest X-Ray Chest 99106 [facility] # Vitamin D 25 Hydroxy 2 496 [facility] # HGBA1c 46634 [facility] # Lipid Panel 5 08746 [facility] # CMP 5 X-Ray Chest X-Ray Chest PFT FULL KAE PFT Full SCT-[id number] SNOMED-CT: 018209282 638910 Current Medications Documented SCT-65066182 SNOMED-CT: 99222834 Procedure, Performed: Colonoscopy 5363 [facility] # Prostate Screening 2014 99637 [facility] # Vitamin D 25 Hydroxy 2 CPT-95759 Testosterone Total 1 6399 [facility] # CBC with diff 1 96838 [facility] # TSH reflex to free T4 496 [facility] # HGBA1c 81589 [facility] # Lipid Panel 1 26619 [facility] # CMP [address] E PHYSICIA Gastroenterology Re [facility] [place] Vital Signs Date Name Value Unit Description BMI (Body Mass Index) 24.68 kg/m2 Bod y Mass Index (Ratio) Body Temperature 98.0 [degF] temperat ure E&M Body Temperature 36.67 Tiffani temperat ure in centigrade E&M BP Diastolic 62 mm[Hg] blood pressu re, diastolic BP Systolic 127 mm[Hg] blood pressur e, systolic BSA (Body Surface Area) 1.88 b genoveva surface area Heart Rate 68 /min pulse rate Height 68 [in_us] height E&M Height 172.72 cm height in cent imeters E&M Weight Measured 161.7 [lb_av] weight E& M Weight Measured 161.7 [lb_av] weight E& M Weight Measured 73.5 kg weight in kilograms E&M Respiratory Rate 20 /min respirat ory rate E&M Immunizations Vaccine Administration Date Standard Description CVX Co de Dose Fluzone Preservative Free Intramuscular Suspension 36mo+ 0.5ml Fluzone Preservative Free Intramuscular Suspension 36mo+ 0.5ml 140 Unknown [facility] [id number] Pneumovax 23 Injection Injectable 25 MCG/0.5ML [facility] [id number] Pneumovax 23 Injection Injectable 25 MCG/0.5ML 33 Unknown Fluzone Preservative Free Intramuscular Suspension 36mo+ 0.5ml Fluzone Preservative Free Intramuscular Suspension 36mo+ 0.5ml 140 0.5 mL Adacel Intramuscular Suspension 5-2-15.5 Adacel Intramuscular Suspension 5-2-15.5 115 0.5 mL PRIVATE Fluzone Quadrivalent Prefilled Syringe 0.5 ML for 36 mos + PRIVATE Fluzone Quadrivalent Prefilled Syringe 0.5 ML for 36 mos + 150 0.5 mL PRIVATE Fluzone Quadrivalent Prefilled Syringe 0.5 ML for 36 mos + PRIVATE Fluzone Quadrivalent Prefilled Syringe 0.5 ML for 36 mos + 150 0.5 mL Advance Directives No information available.
--- OUTSIDE RECORDS SUMMARY | 2025-07-14 06:43 | XMS_ITS | Encounter Summary ---
Author Organization [facility] Address [address] [place] [address] Care Team Providers Care Laboratory Mechanical Technician Name Role Phone Nino Read MD Primary Care Provider [phone] Encounter Details Date Type Department Care Team (Latest Contact Info) Description 05/28/2025 Travel Social History Tobacco Use Types Packs/Day Years [...] on file documented as of this encounter Functional Status * AUDIT-C Score Answer Date of Assessment Author 0 05/28/2025 9:14 AM Surinder Mcgill * Question Answer Date of Assessment Author Q1: How often do you have a drink containing alcohol? Never 05/28/2025 9:14 AM Lilo Mcgill Q2: How many drinks containing alcohol do you have on a typical day when you are drinking? Patient does not drink 05/28/2025 9:14 AM EDT Lilo Reeder Q3: How often do you have six or more drinks on one occasion? Never 05/28/2025 9:14 AM EDT Lilo Reeder documented as of this encounter Plan of Treatment Upcoming Encounters Date Type Department Care Team (Late st Contact Info) Description 08/27/2025 10:00 AM EDT Office Visit [facility] [address] [place] [address] Lio Delgado C, ACCOUNT CLASSIFICATION CLERK [address] [place] [address] documented as of this encounter Visit Diagnoses Not on filedocumented in this encounter Additional Health Concerns Assessment Noted Time A fall risk assessment has been complete d for the patient 05/28/2025 9:22 AM EDT A Body Mass Index follow-up plan has been documented for the patient 05/28/2025 10:20 AM EDT documented as of this encounter Care Teams Laboratory Mechanical Technician Relationship Specialty Start Date End Date Nino Read MD [address] [place] [phone] PCP - General 03/31/21 documented as of this encounter
--- OUTSIDE RECORDS SUMMARY | 2025-07-14 06:43 | XMS_ITS | Clinical Summary ---
Author Organization [facility] Address [address] [place] [address] Care Team Providers Care Wallet Assembler Name Role Phone Nino Read MD Primary Care Provider [phone] Allergies No known active allergies Medications rosuvastatin (Crestor) 40 MG tablet Take 1 tablet by mouth daily. 5 Active buPROPion SR (Wellbutrin SR) 150 MG 12 hr tablet Take 1 tablet by mouth 2 times a day. 5 Active Trelegy Ellipta 100-62.5-25 MCG/ACT aerosol powder inhale one puff by mouth once daily 5 Active albuterol 108 (90 Base) MCG/ACT inhaler INHALE TWO PUFFS BY MOUTH EVERY 4-6 HOURS NEEDED FOR BRONCHOSPASM 5 Active cyanocobalamin 1000 MCG tablet Take 1 tablet by mouth daily. Active acetaminophen (Tylenol) 500 MG tablet Take 2 tablets by mouth every 6 hours as needed. Active cholecalciferol (Vitamin D-3) 50 MCG (2000 UT) capsule Take 1 capsule by mouth. Active melatonin tablet Take 1 tablet by mouth. Active Active Problems Problem Noted Date Diagnosed Date Abdominal aortic aneurysm (AAA) without rupture 05/28/2025 Pre-diabetes 05/28/2025 Encounters Date Type Department Care Team Description 05/28/2025 9:00 AM EDT [facility] Visit [facility] [address] [facility] 5th Floor [address] [place] [address] Lio Delgado, ANKUR Abdominal aortic aneurysm (AAA) without rupture, unspecified part (CMS/HCC) (Primary Dx); Pre-diabetes 05/28/2025 Travel 05/27/2025 Travel from Last 3 Months Family History Medical History Relation Name Comments Cancer Neg Hx Diabetes Neg Hx Heart disease Neg Hx Thyroid disease Neg Hx Social History Tobacco Use Types Packs/Day Years [...] on file Sexual Orientation Not on file Last Filed Vital Signs Vital Sign Reading [...] Mass Index 24.81 05/28/2025 9:12 AM EDT Plan of Treatment Upcoming Encounters Date Type Department Care Team (Late st Contact Info) Description 08/27/2025 10:00 AM EDT Office Visit [facility] [address] [facility] 5th Floor [address] [place] [address] Lio Delgado, ANKUR [address] [facility] [address] [place] [address] Health Maintenance Due Date Last Done Comments [facility]-Depression Screening 1958 [facility]-Hepatitis C Screening 1958 [facility]-/Child/Adol SDOH Screenings 1958 HAT-ABITN-26 Vaccine (#1) 1963 [facility]- SDOH Screenings 1976 [facility]-Adult SDOH Screenings 1976 CT Colonography 2003 Colonoscopy 2003 FIT-DNA 2003 FIT 2003 FOBT 2003 Sigmoidoscopy 2003 [facility]-Colorectal Cancer Screening 2003 [facility]-Zoster Vaccines (1 of 2) 2008 [facility]-Pneumococcal Vaccine: 50+ Years (2 of 2 - PCV) 09/01/2016 09/01/2015 [facility]Y-RSV Vaccine: 60+ Years or (1 - Risk 60-74 years 1-dose series) 2018 [facility]-Abdominal Aortic Aneurysm (AAA) Screening 2023 [facility]-Influenza Vaccine (#1) 07/19/202510/20, 08/06/2017, 10/31/2016, Additional history exists [facility]-DTaP,Tdap,and Td Vaccines (2 - Td or Tdap) 10/31/2026 10/31/2016 HPV Vaccines Aged Out No longer eligi ble based on patient's age to complete this topic [facility]-HIB Vaccines Aged Out No longer e ligible based on patient's age to complete this topic [facility]-Hepatitis A Vaccines Aged Out No longer eligible based on patient's age to complete this topic [facility]Y-IPV Vaccines Aged Out No longer e ligible based on patient's age to complete this topic [facility]Y-Rotavirus Vaccines Aged Out No lo nger eligible based on patient's age to complete this topic Insurance YUAN Care Teams Wallet Assembler Relationship Specialty Start Date End Date Nino Read MD [address] [place] [phone] PCP - General 03/31/21
--- OUTSIDE RECORDS SUMMARY | 2025-07-14 06:43 | XMS_ITS | Clinical Summary ---
Author Organization [facility] Address [address] [place] [address] Phone Care Team Providers Care Plant Taxonomist Name Role Phone Nino Read MD Primary Care Provider [phone] Allergies No known active allergies Medications ibuprofen (ADVIL;MOTRIN) 600 mg tablet Take 1 Tab by mouth every 8 hours as needed for Pain for 21 doses. 21 Tab 0 12/25/2011 Active Active Problems No known active problems Social History Tobacco Use Types Packs/Day Years Used Date Smoking Tobacco: Every Day Cigarettes Sex and Gender Information Value Date Recorded Sex Assigned at Not on file Legal Sex Male 6:30 AM EDT Gender Identity Not on file Sexual Orientation Not on file Obstetrics History Last Filed Vital Signs Vital Sign Reading Time Taken Comments Blood Pressure 118/78 11/08/2014 12:13 PM EST Pulse 62 11/08/2014 12:13 PM EST Temperature 38.9 C (102 F) 11/08/2014 12:13 PM EST Respiratory Rate 16 11/08/2014 12:13 PM EST Oxygen Saturation 97% 11/08/2014 12:13 PM EST Inhaled Oxygen Concentration - - Weight 69.9 kg (154 lb) 11/08/2014 12:13 PM EST Height 172.7 cm (5' 8 ) 12/25/2011 2:13 PM EST Body Mass Index 23.42 12/25/2011 2:13 PM EST Plan of Treatment Health Maintenance Due Date Last Done Comments Annual Wellness Exam 1961 Hepatitis C Screening 1976 DTaP/TDaP/Td (1 - Tdap) 1977 Cologuard 2003 FIT 2003 Sigmoidoscopy 2003 Virtual Colonography 2003 Pneumococcal Vaccine 50+ (1 of 1 - PCV) 2008 Zoster (1 of 2) 2008 Colon Cancer Screening 07/05/2018 Colonoscopy 07/05/2018 07/05/2015 COVID-19 Vaccine (1 - 2023-2 5 season) 2024 Influenza Vaccine (#1) 2025 Hepatitis B Vaccine Aged Out No longe r eligible based on patient's age to complete this topic Meningococcal B Vaccine Aged Out No l onger eligible based on patient's age to complete this topic Insurance MEDICAID Care Teams Plant Taxonomist Relationship Specialty Start Date End Date Nino Read MD [address] [place] [phone] PCP - General Family Medicine 04/14/15
--- OUTSIDE RECORDS SUMMARY | 2025-07-14 06:43 | XMS_ITS | Encounter Summary ---
Author Organization [facility] Address [address] [place] [address] Care Team Providers Care Assistant Director Of Admissions Name Role Phone Nino Read MD Primary Care Provider [phone] Encounter Details Date Type Department Care Team (Latest Contact Info) Description 05/27/2025 Travel Social History Tobacco Use Types Packs/Day Years Used Date Smoking Tobacco: Never Assessed AUDIT-C Answer Date Recorded Q1: How often [...] Description 08/27/2025 10:00 AM EDT Office Visit [place] [facility] [address] [facility] 5th Floor [address], [address] [place] [address] Lio Delgado, SUPERINTENDENT CAR CONSTRUCTION [address] [facility] [address] [place] [address] documented as of this encounter Visit Diagnoses Not on filedocumented in this encounter Care Teams Assistant Director Of Admissions Relationship Specialty Start Date End Date Nino Read MD [address] [place] [address] PCP - General 03/31/21 documented as of this encounter
== END ==
LOC: SL 06:41
PROVIDERS: PCP Internal Medicine Pulmonary Disease; Visit Provider Internal Medicine Pulmonary Disease
DX: G47.33 Obstructive sleep apnea (adult) (pediatric) (principal); G47.36 Sleep related hypoventilation in conditions classified elsewhere
CPT/HCPCS: 95806

== ENCOUNTER 2025-08-06 15:20 | Outpatient (CLI) | payer BC, SELFPAY ==
--- OUTSIDE RECORDS SUMMARY | 2025-08-06 15:21 | XMS_ITS | Clinical Summary ---
Author Organization [facility] Address [address] [place] [address] Phone Care Team Providers Care Recording Artist Name Role Phone Nino Read MD Primary Care Physician [phone] [ ] Conditions or Problems Problem Name [...] for malignant neoplasm of the respiratory organs 744214708 (SNOMED CT) 12/21 Inactive 12/21 Nino Read [...] adult Z68.25 (ICD-10-CM ) 08/06 Correction 08/06 Nnio Read MD Body mass index [BMI] 25.0-25.9, adult Body mass index (BMI) 25.0-25.9; adult Z68.25 (ICD-10-CM ) 08/06 Removed 08/06 Mickell Bayamon MA Body mass index [BMI] 25.0-25.9, adult Body mass index (BMI) 23.0-23.9; adult Z68.23 (ICD-10-CM ) 05/01 Correction 05/01 Mickell Bayamon MA Body mass index [BMI] 23.0-23.9, adult Flu shot 58176101 (SNOMED CT) 08/06 Inactive 08/06 Mickell Bayamon MA Administration of influenza vaccine Body mass index (BMI) 23.0-23.9; adult Z68.23 (ICD-10-CM ) 05/01 Removed 05/01 Nino Read MD Body mass index [BMI] 23.0-23.9, adult Body mass index (BMI) 24.0-24.9; adult Z68.24 (ICD-10-CM ) 01/29 Correction 01/29 Nino Read MD Body mass index [BMI] 24.0-24.9, adult Viral URI 357815891 (SNOMED CT) 05/01 Inactive 05/01 Nino Read MD Viral upper respiratory tract infection Body mass index (BMI) 24.0-24.9; adult Z68.24 (ICD-10-CM ) 01/29 Removed 01/29 Nino Read MD Body mass index [BMI] 24.0-24.9, adult Tobacco abuse 68976880 (SNOMED CT) 04/04 Active 04/04 Nino Read MD Tobacco dependence syndrome Chronic bronchitis 79048399 (SNOMED CT) 04/04 Active 04/04 Nino Read MD Chronic bronchitis VITAMIN D DEFICIENCY 35121837 (SNOMED CT) 04/12 Active 04/12 Nino Read MD Vitamin D deficiency Prediabetes 3354824 (SNOMED CT) 04/12 Active 04/12 Nino Read MD Impaired glucose tolerance HYPERLIPIDEM IA 37767476 (SNOMED CT) 03/13 Active 03/13 Nino Read MD Hyperlipidemia Screening, colon cancer 345561833 (SNOMED CT) 03/08 Inactive 03/08 Nino Read MD Screening for malignant neoplasm of colon Fhx of DM 831751268 (SNOMED CT) 03/08 Active 03/08 Nino Read MD Family history of diabetes mellitus Erectile dysfunction 911464626 (SNOMED CT) 03/08 Active 03/08 Nino Read MD Impotence DYSPNEA 358722866 (SNOMED CT) 03/08 Active 03/08 Nino Read MD Dyspnea CONSTIPATION 53975589 (SNOMED CT) 03/08 Active 03/08 Nino Read MD Constipation Medications Medication Instructions Start Date Stop Date Generic Name [facility] Provider FIDE FONSECA USE DIRECTED WITH VENTOLIN INHALER SPACER/AERO-HOLDI NG CHAMBERS 53020975406 Nino Read MD VENTOLIN HFA 108 (90 Base) MCG/ACT AERS INHALE 2 PUFFS INTO THE LUNGS EVERY 4 HOURS NEEDED FOR WHEEZING ALBUTEROL SULFATE 99154677086 Nino Read MD TRIAMCINOLONE ACETONIDE 0.1 % OINT APPLY TO AFFECTED AREA TWICE A DAY TRIAMCINOLONE ACETONIDE 10807796704 Nino Read MD SHINGRIX 50 MCG/0.5ML SUSR PLEASE ADMINISTER .5 ML NOW AND REPEAT DOSE IN 2-6 MONTHS ZOSTER VAC RECOMB ADJUVANTED 32307280250 Nino Read MD ATORVASTATIN CALCIUM 40 MG TABS TAKE 1 TABLET DAILY (AT BEDTIME) ATORVASTATIN CALCIUM 71581543201 Nino Read MD ATORVASTATIN CALCIUM 40 MG TABS TAKE 1 TABLET BY MOUTH AT BEDTIME ATORVASTATIN CALCIUM 24633142282 Nino Read MD VITAMIN D 50 MCG (2000 UT) TABS TAKE 1 TABLET BY MOUTH ONCE A DAY CHOLECALCIFEROL 61245708186 Nino Read MD BREO ELLIPTA 100-25 MCG/ACT AEPB USE 1 INHALATION ONCE A DAY FLUTICASONE FUROATE-VILANTERO L 72812074626 Nino Read MD BROMFED DM 30-2-10 MG/5ML ORAL SYRUP TAKE 10 ML BY MOUTH 4 TIMES A DAY NEEDED FOR COUGH PSEUDOEPH-BROMPHE N-DM 78302810277 Nino Read MD BUPROPION HCL ER (SR) 150 MG [id number] TAKE 1 CAPSULE BY MOUTH EACH DAY FOR 3 DAYS THEN 1 BY MOUTH 2 TIMES A DAY BUPROPION HCL 37426030423 Nino Read MD BUPROPION HCL ER (SR) 150 MG [id number] TAKE 1 CAPSULE BY MOUTH EACH DAY FOR 3 DAYS THEN 1 BY MOUTH 2 TIMES A DAY BUPROPION HCL 64582482082 Nino Read MD CHANTIX CONTINUING MONTH KRISTAL 1 MG ORAL TABLET TAKE 1 TABLET TWICE A DAY VARENICLINE TARTRATE 06018851156 Nino Read MD ATORVASTATIN CALCIUM 20 MG TABS TAKE 1 TABLET BY MOUTH AT BEDTIME ATORVASTATIN CALCIUM 65636297457 Nino Read MD CHANTIX CONTINUING MONTH KRISTAL 1 MG ORAL TABLET TAKE 1 TABLET TWICE A DAY VARENICLINE TARTRATE 23157291983 Nino Read MD CHANTIX STARTING MONTH KRISTAL 0.5 MG X 11 & 1 MG X 42 ORAL TABLET USE DIRECTED VARENICLINE TARTRATE 07002644070 Nino Read MD SYMBICORT 160-4.5 MCG/ACT AERO USE 2 INHALATIONS TWICE A DAY BUDESONIDE-FORMOT LAQUITA FUMARATE 22265030473 Nino Read MD FLOVENT HFA 110 MCG/ACT INHALATION AEROSOL TAKE 2 INHALATIONS TWICE A DAY FLUTICASONE PROPIONATE HFA 22157702144 Nino Read MD DOCUSATE SODIUM 100 MG CAPS TAKE 1-2 CAPSULE(S) BY MOUTH EVERY NIGHT AT BEDTIME NEEDED FOR CONSTIPATION DOCUSATE SODIUM 57237489581 Denia Soliz MIRALAX 17 GM/SCOOP POWD 1 SCOOP 2 TIMES A DAY MIXED IN 6 OZ OF WATER FOR CONSTIPATION POLYETHYLENE GLYCOL 3350 01057868520 Denia Soliz VITAMIN D 50 MCG (2000 UT) TABS TAKE 1 TABLET BY MOUTH ONCE A DAY CHOLECALCIFEROL 16676258719 Nino Read MD VENTOLIN HFA 108 (90 Base) MCG/ACT AERS TAKE 2 INHALATIONS EVERY 4 HOURS NEEDED FOR WHEEZING ALBUTEROL SULFATE 17113646796 Nino Read MD VITAMIN D (ERGOCALCIFEROL) 1.25 MG (06559 UT) CAPS TAKE 1 CAPSULE BY MOUTH 2 TIMES PER WEEK ERGOCALCIFEROL 16189019424 Nino Read MD ATORVASTATIN CALCIUM 20 MG TABS TAKE 1 TABLET BY MOUTH AT BEDTIME ATORVASTATIN CALCIUM 30600951823 Nino Read MD MIRALAX 17 GM/SCOOP POWD 1 SCOOP 2 TIMES A DAY MIXED IN 6 OZ OF WATER FOR CONSTIPATION POLYETHYLENE GLYCOL 3350 17266172681 Nino Read MD DOCUSATE SODIUM 100 MG CAPS TAKE 1-2 CAPSULE(S) BY MOUTH EVERY NIGHT AT BEDTIME NEEDED FOR CONSTIPATION DOCUSATE SODIUM 37040407421 Nino Read MD Medications Administered No information [...] in Blood ABS NEUTROPH 7131 CELLS/UL 10*3/uL 2990-2123 N Neutrophils [#/volume] in Blood PLATELETK/UL 313 [...] Date Detail Referral Gastroenterology Referral [facility], [address] [facility] [address], [place], [address] Lung w/o Cont rast [...] Pending order T1 HGBA1c Pending order SNOMED-CT: 37724 001 Procedure, Performed: Colonoscopy Pending Order exclud ed from report: Pending order T1 CMP Pending order T1 HGBA1c Pending order T1 Lipid Panel Pending order SNOMED-CT: 42424 001 Procedure, Performed: Colonoscopy Pending Order exclud [...] R OUTE 1ST VAC/TOXOID Pending order SNOMED-CT: 11281 001 Procedure, Performed: Colonoscopy Pending Order exclud ed from report: Pending order T1 CMP Pending order T1 Lipid Panel Pending order T2 Vitamin D 25 Hydroxy Pending order SNOMED-CT: 05118 001 Procedure, Performed: Colonoscopy Pending Order exclud ed from report: Pending order CMP Pending order HGBA1c Pending order Lipid Panel Pending order Adacel Pending order Fluzone Quadriva lent Preservative Free Intramuscular Suspension 0.5 ML Pending order IMADM >18YR IM R OUTE 1ST VAC/TOXOID Pending order IMADM >18YR IM R OUTE EA ADDL VAC/TOXOID Pending order SNOMED-CT: 95056 001 Procedure, Performed: Colonoscopy Pending Order exclud [...] exclud ed from report: Pending order SNOMED-CT: 83846 [id number] Current Medications Documented Pending order SNOMED-CT: 49984 001 Procedure, Performed: Colonoscopy Pending order SNOMED-CT: 09652 001 Procedure, Performed: Colonoscopy Pending Order exclud [...] Procedures Code Procedure Name Date Entry Date [facility]-[id number] Medication Reconciliation LDCT G0297 CT Lung w/o Contrast Low Dose CPT-3074F Most recent systolic blood pressure <130 mm Hg CPT-3078F Most recent diastoli c blood pressure <80 mm Hg CPT-99579 Fluzone Quadrivalent Preservative Free prefilled syringe (36 mos +) CPT-49273 IMADM >18YR IM ROUTE 1ST VAC/TOXOID 10/20 [facility] 67488 T1 CMP [facility] 496 T1 HGBA1c [facility] 45540 T1 Lipid Panel [facility] 11773 T2 Vitamin D 25 Hydroxy 2017 [facility] 5363 T1 Prostate Screening 12/21 [facility] 39577 T1 Hepatic Function Panel 20 05/05/07 [facility] 43060 T1 Lipid Panel SCT-315948307607260 Medication Reconciliation CPT-3074F Most recent systolic blood pressure <130 mm Hg CPT-3078F Most recent diastoli c blood pressure <80 mm Hg SCT-260485017 SNOMED-CT: 362079865 Smoking Cessation Counseling SCT-359634465701212 SNOMED-CT: 691519130 664774 Current Medications Documented SCT-03221395 SNOMED-CT: 53338338 Procedure, Performed: Colonoscopy [facility] 496 T1 HGBA1c [facility] 35628 T1 CMP [facility] 44420 T1 Lipid Panel SCT-515287115927674 Medication Reconciliation CPT-3075F Most recent systolic blood pressure 130-139 mm Hg CPT-3078F Most recent diastoli c blood pressure <80 mm Hg SCT-307118613 SNOMED-CT: 662576722 Smoking Cessation Counseling SCT-787018659957432 SNOMED-CT: 968425537 959284 Current Medications Documented SCT-45169430 SNOMED-CT: 42122024 Procedure, Performed: Colonoscopy [facility] 20773 T1 Lipid Panel [facility] 496 T1 HGBA1c [facility] 12122 T1 CMP SCT-541538363018207 Medication Reconciliation CPT-39962 Fluzone Quadrivalent Preservative Free prefilled syringe (36 mos +) CPT-62963 IMADM >18YR IM ROUTE 1ST VAC/TOXOID 08/06 SCT-550464242 SNOMED-CT: 762415632 Smoking Cessation Counseling SCT-789427660547657 SNOMED-CT: 347747395 373456 Current Medications Documented SCT-17087474 SNOMED-CT: 24484564 Procedure, Performed: Colonoscopy [facility] 99736 T1 CMP [facility] 41758 T1 Lipid Panel [facility] 67483 T2 Vitamin D 25 Hydroxy 2016 SCT-436914538470650 Medication Reconciliation CPT-3074F Most recent systolic blood pressure <130 mm Hg CPT-3078F Most recent diastoli c blood pressure <80 mm Hg SCT-085258996 SNOMED-CT: 691451070 Smoking Cessation Counseling SCT-932361204058371 SNOMED-CT: 587485873 729959 Current Medications Documented SCT-24389584 SNOMED-CT: 09521351 Procedure, Performed: Colonoscopy SCT-992432287100863 Medication Reconciliation CPT-3075F Most recent systolic blood pressure 130-139 mm Hg CPT-3079F Most recent diastoli c blood pressure 80-89 mm Hg 34785 [facility] Test # CMP 4 496 [facility] # HGBA1c 72732 [facility] # Lipid Panel 4 SCT-944781154007595 Medication Reconciliation SCT-544899067 SNOMED-CT: 810401107 Smoking Cessation Counseling SCT-744336559756037 SNOMED-CT: 253443009 379143 Current Medications Documented SCT-89964186 SNOMED-CT: 67875527 Procedure, Performed: Colonoscopy CPT-16787 Adacel CPT-70942 Fluzone Quadrivalent Preservative Free Intramuscular Suspension 0.5 ML CPT-02093 IMADM >18YR IM ROUTE 1ST VAC/TOXOID 10/31 CPT-28405 IMADM >18YR IM ROUTE EA ADDL VAC/TOXOID 2 X-Ray Chest X-Ray Chest SCT-763456000623379 Medication Reconciliation SCT-718504170 Current every day smoker 20 03/07/16 SCT-905981129 Smoking cessation education 35246 [facility] Test # CMP 6 496 [facility] # HGBA1c 87999 [facility] # Lipid Panel 6 53587 [facility] # Vitamin D 25 Hydroxy 2 SCT-881178500139357 Medication Reconciliation PFT FULL KAE PFT Full 77494 [facility] # CMP 3 496 [facility] # HGBA1c 86816 [facility] # Vitamin D 25 Hydroxy 2 SCT-046911556446708 Medication Reconciliation SCT-437011276 Current every day smoker 20 03/12/12 SCT-116411729 Smoking cessation education X-Ray Chest X-Ray Chest 52796 [facility] Test # Vitamin D 25 Hydroxy 2 496 [facility] # HGBA1c 32652 [facility] # Lipid Panel 5 21945 [facility] # CMP 5 X-Ray Chest X-Ray Chest PFT FULL KAE PFT Full SCT-414685571342070 SNOMED-CT: 683012930 799011 Current Medications Documented SCT-86401591 SNOMED-CT: 58135686 Procedure, Performed: Colonoscopy 5363 [facility] # Prostate Screening 2014 07271 [facility] # Vitamin D 25 Hydroxy 2 CPT-46412 Testosterone Total 1 6399 [facility] # CBC with diff 1 87037 [facility] # TSH reflex to free T4 496 [facility] # HGBA1c 62666 [facility] # Lipid Panel 1 60992 [facility] # CMP [address] E [facility] Gastroenterology Re [facility] Vital Signs Date Name Value Unit [...] Free Intramuscular Suspension 36mo+ 0.5ml 140 Unknown [facility] [address]-02 Pneumovax 23 Injection Injectable 25 MCG/0.5ML [facility] [address]-41 Pneumovax 23 Injection Injectable 25 MCG/0.5ML 33 [...]
--- OUTSIDE RECORDS SUMMARY | 2025-08-06 15:23 | XMS_ITS | Clinical Summary ---
Author Organization [facility] Address [address] [place] [address] Care Team Providers Care Creative Specialist Name Role Phone Nino Read MD Primary Care Provider [phone] Allergies No known active allergies Medications rosuvastatin [...] Description 05/28/2025 9:00 AM EDT Office Visit [place] [facility] [address] [facility] 5th Floor [address] [place] [address] Lio Delgado, SUPERVISOR GRAPHITE Abdominal aortic aneurysm (AAA) without rupture, unspecified [...] Team (Late st Contact Info) Description 08/27/2025 8:20 AM EDT Appointment [facility] [address] [place] [address] 08/27/2025 10:00 AM EDT Office Visit [place] [facility] [address] [facility] 5th Floor [address] [place] [address] Lio Delgado, SUPERVISOR GRAPHITE [address] [place] [address] Health Maintenance Due Date Last Done Comments [facility]-Depression Screening 1960 [facility]-Hepatitis C Screening 1958 [facility]-/Child/Adol SDOH Screenings 1960 ATR-ZFLSW-14 Vaccine (#1) 1963 [facility]- SDOH Screenings 1976 [...] patient's age to complete this topic Insurance ANTHEM Care Teams Creative Specialist Relationship Specialty [place] [address] [place] [phone] PCP - General 03/31/21
--- OUTSIDE RECORDS SUMMARY | 2025-08-06 15:23 | XMS_ITS | Encounter Summary ---
Author Organization [facility] Address [address] [place] [address] Care Team Providers Care Automation And Control Engineer Name Role Phone Nino Read MD Primary Care Provider [phone] Encounter Details Date Type Department Care Team (Late Contact Info) Description 02/11/2025 Orders Only External Location [address] [place] [address] Provider, External Social History Tobacco Use Types [...] EDT Appointment [facility] [address] [place] [address] 08/27/2025 10:00 AM EDT Office Visit [place] [facility] [address] [facility] 5th Floor [address] [place] [address] Lio Delgado C, OPTICAL INSTRUMENT SPECIALIST [address] [facility] [address] [place] [address] documented as of this encounter Procedures Procedure [...] on filedocumented in this encounter Care Teams Automation And Control Engineer Relationship Specialty Start Date End Date Nino Read MD [address] [place] [phone] PCP - General 03/31/21 documented as of this encounter
--- OUTSIDE RECORDS SUMMARY | 2025-08-06 15:23 | XMS_ITS | Clinical Summary ---
Author Organization [facility] Address [address] [place] [address] Phone Care Team Providers Care Metal Fabricator Name Role Phone Nino Read MD Primary Care Provider [phone] Allergies No known active allergies Medications ibuprofen [...] COVID-19 Vaccine (1 - 2023-2 5 season) 2025 Influenza Vaccine (#1) 2025 Hepatitis B Vaccine Aged Out No longe r eligible based on patient's age to complete this topic Meningococcal B Vaccine Aged Out No l onger eligible based on patient's age to complete this topic Insurance MEDICAID Care Teams Metal Fabricator Relationship Specialty Start Date End Date Nino Read MD [address] [place] [phone] PCP - General Family Medicine 04/14/15
--- NOTE | 2025-08-06 15:30 | CT_ITS ---
FINAL REPORT TECHNIQUE: Axial CT without IV contrast administration using low dose protocol. This study was performed with techniques to keep radiation doses as low as reasonably achievable, (ALARA). Individualized dose reduction techniques using automated exposure control or adjustment of mA and/or kV according to the patient's size were employed. CLINICAL HISTORY: lung cancer screening current smoker 1 ppd x 40 years COMPARISON: None FINDINGS: CT CHEST LOW DOSE SCREENING HISTORY: Screening exam for lung cancer, current smoker, 47-fefa-cbjx history DOSE: CTDI vol: 2.90 mGy, DLP: 101.51 mGy*cm No acute lung disease is present. No pulmonary lesions are seen suspicious for neoplasm. Emphysematous changes are noted involving the upper lobes. No pleural or pericardial effusion is seen. No adenopathy or mass lesion is present. IMPRESSION: No evidence of lung cancer LUNG RADS CATEGORY 1 RECOMMENDATION: 12 month LDCT follow up Reviewed, Interpreted and Dictated by Santos Pollock MD Transcribed by Saumya Lazo Authenticated and [facility]
== END 2025-08-06 23:59 | disposition home or self-care (01) ==
LOC: RAD 15:21
PROVIDERS: PCP Nurse Practitioner Family; Visit Provider Internal Medicine Pulmonary Disease
DX: Z12.2 Encounter for screening for malignant neoplasm of respiratory organs (principal); F17.210 Nicotine dependence, cigarettes, uncomplicated
CPT/HCPCS: 71271